=== PATIENT | male | born 1950 | race Caucasian/White ===

== ENCOUNTER 2018-09-15 11:41 | Emergency (ER) | payer MEDICARE, MEDICAID ==
[2018-09-15] MEDS ORDERED: DIAZEPAM 5 MG TABLET PO ONE (12:37)
[2018-09-15] MEDS ORDERED: KETOROLAC TROMETHAMINE INJ/PF 30 MG/1 ML SDV IM ONE (12:37)
--- NOTE | 2018-09-15 12:38 | ER Document Report ---
ED Medical Screen (RME) - General Chief Complaint: Low Back Pain Stated Complaint: LOW BACK PAIN Time Seen by Provider: 09/15/18 12:30 Mode of Arrival: Ambulatory Information source: Patient TRAVEL OUTSIDE OF THE [place] IN LAST 30 DAYS: No - HPI Patient complains to provider of: LOW BACK PAIN Notes: 09/15/18 12:37 Patient has a history of low back pain. He takes ibuprofen which he took early this morning as well as hydrocodone which she takes 4 times a day. He is having increasing pain in the lower back. No recent fall or injury. No bowel or bladder dysfunction. No fever. No drug use. Exam Nontoxic, no distress. Walks using a cane. Lumbar tenderness to palpation. No focal neuro deficits. Plan Screening lumbar x-ray, shot of Toradol and a dose of Valium. An initial examination was made on the patient as part of the triage process, and it was determined a more comprehensive evaluation was necessary. Initial l abs were ordered and patient was transferred to another provider in the ED who assumed care and finished evaluation and plan. - Related Data Allergies/Adverse Reactions: mri dye Allergy (Uncoded 09/15/18 11:42) Physical Exam - Vital signs Vitals: Temp Pulse Resp BP Pulse Ox 97.6 F 80 20 138/60 H 95 09/15/18 11:53 09/15/18 11:53 09/15/18 11:53 09/15/18 11:53 09/15/18 11:53 Course - Vital Signs Vital signs: Temp Pulse Resp BP Pulse Ox 97.6 F 80 20 138/60 H 95 09/15/18 11:53 09/15/18 11:53 09/15/18 11:53 09/15/18 11:53 09/15/18 11:53
--- NOTE | 2018-09-15 13:25 | RADIOLOGY REPORT (SQ) ---
EXAM DESCRIPTION: L SPINE WHOLE COMPLETED DATE/TIME: 09/15/2018 1:12 pm REASON FOR STUDY: PAIN COMPARISON: None. NUMBER OF VIEWS: Five views including obliques. TECHNIQUE: AP, lateral, oblique, and sacral radiographic images acquired of the lumbar spine. LIMITATIONS: None. FINDINGS: MINERALIZATION: Normal. SEGMENTATION: Normal. No transitional anatomy. ALIGNMENT: Normal. VERTEBRAE: Maintained height. No fracture or worrisome bone lesion. DISCS: Multilevel disc space narrowing with osteophytes. POSTERIOR ELEMENTS: Pedicles and facets are intact. No pars defect or posterior arch defects. Facet arthropathy is present. HARDWARE: None in the spine. PARASPINAL SOFT TISSUES: Normal. PELVIS: Intact as visualized. No fractures or worrisome bone lesions. SI joints intact. OTHER: Incidental note is made of gallstones. IMPRESSION: SPONDYLOSIS WITHOUT BONE LESION OR FRACTURE. TECHNICAL DOCUMENTATION: JOB ID: [id number] [email or web address] All Rights Reserved Reading location - IP/workstation name: [email or web address]
--- NOTE | 2018-09-15 15:21 | ER Document Report ---
Addendum entered and electronically signed by ALISE THOMPSON PA-C 09/15/18 15:26: Discharge - Discharge Clinical Impression: Spasm of muscle of lower back Condition: Stable Disposition: HOME, SELF-CARE Instructions: Ice Packs ([facility]), Low Back Pain ([facility]), Muscle Strain ([facility]), Warm Packs ([facility]) Additional Instructions: Be placed patient on a couple days worth of Valium for muscle spasms. I have informed him that he needs to inform his pain management people that we have written for him this out of the emergency room. Patient will continue taking his hydrocodone and ibuprofen as he has been directed in the past. He will use ice packs alternating with moist heat. Light stretching as he and I discussed. He is not to go to the gym to start working out until cleared by his physicians. Prescriptions: Diazepam [Valium 5 mg Tablet] 5 mg PO TID PRN #12 tablet PRN Reason: Original Note: ED General Pain - General Chief Complaint: Low Back Pain Stated Complaint: LOW BACK PAIN Time Seen by Provider: 09/15/18 12:30 Mode of Arrival: Ambulatory Information source: Patient Notes: Patient is a 68-year-old male comes emergency room complaining of chronic back pain with an acute exacerbation. Patient states that he went to [place] approximately a week and a half ago drove up there and back and came back about a week and half ago and is when he started noticed some little discomfort in his low back. He states it was a pain like he does not usually get it went across his entire back and then it settled in his left side on the left hip area it do es not radiate anywhere down the legs he has not lost any urine or stool. The right side pain disappeared completely. He does state that he has had to change the way he wipes himself after a bowel movement he leans forward off of the toilet since he had his back surgery 1984 and lately he has been having to lean more forward and wiped and he is putting stress on the left side while he holds his right side up. He is also been having a difficult time getting out of bed because of the discomfort. He took his hydrocodone this morning which seemed to relieve some of the discomfort and pain but he also took 800 mg ibuprofen without any relief. Patient has a long history of irritable bowel syndrome as well as a history of prosthetic cancer. He is also a type II diabetic. Also has a history of hypertension. Patient denies any new difficulties in walking he does always walk with a cane. He has not noted any type of foot drop. And is not having sensation loss in his lower extremities. TRAVEL OUTSIDE OF THE [place] IN LAST 30 DAYS: No - HPI Onset: Last week Onset/Duration: Gradual, Persistent Quality of pain: Cramping, Throbbing Severity: Moderate Pain Level: 3 Context: Chronic problem, Recent physical stress Typical of prior episodes of painful crisis: Yes Associated symptoms: Muscle aches Exacerbated by: Sitting, Standing, Movement, Walking Relieved by: Supine Similar symptoms previously: Yes Recently seen / treated by doctor: No - Related Data Allergies/Adverse Reactions: mri dye Allergy (Uncoded 09/15/18 11:42) Past Medical History - General Information source: Patient - Social History Smoking Status: Former Smoker Cigarette use (# per day): No Chew tobacco use (# tins/day): No Smoking Education Provided: No Frequency of alcohol use: Occasional Drug Abuse: None Lives with: Family, Spouse/Significant other Family History: Reviewed & Not Pertinent Patient has suicidal ideation: No Patient has homicidal ideation: No - Past Medical History Cardiac Medical History: Reports: Hx Heart Attack, Hx Hypercholesterolemia, Hx Hypertension Renal/ Medical History: Denies: Hx Peritoneal Dialysis Past Surgical History: Reports: Hx Cardiac Catheterization, Hx Cardiac Surgery - stents x 2, Hx Orthopedic Surgery Review of Systems - Review of Systems Constitutional: No symptoms reported EENT: No symptoms reported Cardiovascular: No symptoms reported Respiratory: No symptoms reported Gastrointestinal: No symptoms reported Genitourinary: No symptoms reported Male Genitourinary: No symptoms reported Musculoskeletal: See HPI Skin: No symptoms reported Hematologic/Lymphatic: No symptoms reported Neurological/Psychological: No symptoms reported -: Yes All other systems reviewed and negative Physical Exam - Vital signs Vitals: Temp Pulse Resp BP Pulse Ox 97.6 F 80 20 138/60 H 95 09/15/18 11:53 09/15/18 11:53 09/15/18 11:53 09/15/18 11:53 09/15/18 11:53 Interpretation: Normal - Notes Notes: PHYSICAL EXAMINATION: GENERAL: Patient is a well-nourished well-developed obese 68-year-old male who is in no apparent distress on physical exam. He does appear to be a little uncomfortable but he is ambulating without any difficulties. He does use a cane for balance.. HEAD: Atraumatic, normocephalic. EYES: Pupils equal round and reactive to light, extraocular movements intact, sclera anicteric, conjunctiva are normal. ENT: Nares patent, oropharynx clear without exudates. Moist mucous membranes. NECK: Normal range of motion, supple without lymphadenopathy LUNGS: Breath sounds clear to auscultation bilaterally and equal. No wheezes rales or rhonchi. HEART: Regular rate and rhythm without murmurs ABDOMEN: Soft, nontender, nondistended abdomen. No guarding, no rebound. No masses appreciated. Musculoskeletal: Examination patient's area of concern is his low back area. He states that there is around L5 that he had his original injury. He denies any loss of urine or stool and he has some mild tenderness to palpation but it is not on the generalized spine area. It is more off into the latissimus dorsi area on the left side. Patient displays some increased tenderness to palpation in the area of the muscle. There does appear to be a spasm in the area. Patient has full rotation as well as flexion and extension both a little difficulty secondary to discomfort. Examination of the lower extremities shows he has no deficits. He has no saddle paresthesia noted. He has good DTRs in the lower extremities. He has good strength against flexion and extension of the ankles and feet against resistance. His vascular exam is also normal. Patient walks with no foot drop. NEUROLOGICAL: Normal speech, normal gait. Normal sensory, motor exams PSYCH: Normal mood, normal affect. SKIN: Warm, Dry, normal turgor, no rashes or lesions noted. Course - Re-evaluation Re-evalutation: 09/15/18 15:21 Patient's x-rays were negative for any acute findings. Given there was no history of any type of injury with the exception of his long ride back from [facility]. He displays no signs of deep vein thrombosis he has no shortness of breath and no tachycardia. He has no chest pain as well. This does appear to be a straightforward muscle spasm of the low back. He does have a pain management doctor Dona Whittington. He will follow-up with her sometime this week and possibly be instructed to go to physical therapy. He understands he can return to ER if he has any other signs or symptoms of problems. - Vital Signs Vital signs: Temp Pulse Resp BP Pulse Ox 97.6 F 80 20 138/60 H 95 09/15/18 11:53 09/15/18 11:53 09/15/18 11:53 09/15/18 11:53 09/15/18 11:53 Discharge - Discharge Clinical Impression: Spasm of muscle of lower back Condition: Stable Disposition: HOME, SELF-CARE Instructions: Ice Packs ([facility]), Low Back Pain ([facility]), Muscle Strain ([facility]), Warm Packs ([facility]) Additional Instructions: Be placed patient on a couple days worth of Valium for muscle spasms. I have informed him that he needs to inform his pain management people that we have written for him this out of the emergency room. Patient will continue taking his hydrocodone and ibuprofen as he has been directed in the past. He will use ice packs alternating with moist heat. Light stretching as he and I discussed. He is not to go to the gym to start working out until cleared by his physicians. Prescriptions: Diazepam [Valium 5 mg Tablet] 5 mg PO TID PRN #12 tablet PRN Reason:
[2018-09-15 15:50] VITALS: BP 119/70
== END 2018-09-15 15:50 | disposition home or self-care (01) ==
LOC: ER 11:41
DX: M62.830 Muscle spasm of back (principal); M54.5 Low back pain; G89.29 Other chronic pain; E11.9 Type 2 diabetes mellitus without complications; I10 Essential (primary) hypertension; Z85.46 Personal history of malignant neoplasm of prostate; Z87.891 Personal history of nicotine dependence
CPT/HCPCS: 99283; 96372; 72110; A9270; J1885

== ENCOUNTER 2018-10-14 09:46 | Day surgery (SDC) | payer MEDICARE, MEDICAID ==
[~2018-10-14 09:46] MED LIST: DORZOLAMIDE HCL 2%/TIMOLOL MALEAT 0.5% OPH SOLN 10 ML OS PRN; KETOROLAC TROMETHAMINE 0.45% 4 DROP/0.4 ML DROPERETTE OS PRN
[2018-10-14] MEDS: TETRACAINE HCL 0.5% OPH SOLN 4 ML OS PRN ×4 (10:04→11:39)
[2018-10-14] MEDS: CYCLOPENTOLATE 0.2%/PHENYLEPHRINE 1% OPH SOLN 2 ML OS PRN ×3 (11:04→11:29)
[2018-10-14] MEDS: TROPICAMIDE 1% OPH SOLN 3 ML OS PRN ×3 (11:04→11:29)
[2018-10-14] MEDS: BESIFLOXACIN HCL 0.6% OPH SUSP 5 ML BOTTLE OS PRN ×4 (11:04→12:03)
[2018-10-14] MEDS ORDERED: MIDAZOLAM 2 MG/2 ML INJ ONE (11:07)
[2018-10-14] MEDS: CHONDR SU A NA/HYALUR INTRAOC KIT (SURGICARE) ONE ×2 (11:53)
[2018-10-14] MEDS: LIDOCAINE 1%/PHENYLEPHRINE 1.5% 1 ML VIAL ONE ×2 (11:53)
[2018-10-14] MEDS: EPINEPHRINE INJ/PF 1 MG/1 ML AMPULE ONE ×2 (11:53)
--- NOTE | 2018-10-14 17:44 | [facility] OPERATIVE REPORT E ---
[facility] Operative Report NAME: HELIO RODRIGUEZ AGE: 68Y DATE OF SURGERY: 10/14/2018 ROOM: PREOPERATIVE DIAGNOSIS: CATARACT LEFT EYE. POSTOPERATIVE DIAGNOSIS: CATARACT LEFT EYE. OPERATION: Cataract extraction with intraocular lens implant of the left eye with a toric multifocal lens. SURGEON: JUAN MCGRATH M.D. ANESTHESIA: MAC COMPLICATIONS: None. ESTIMATED BLOOD LOSS: None. PROCEDURE: After appropriate consent was obtained and calculations made, the patient was brought back to the operating room where the patient was prepped and draped in sterile fashion. A lid speculum was placed and attention was directed to a paracentesis where a paracentesis blade made a small incision. Viscoelastic was then used to inflate the anterior chamber. Next a 2.4 mm incision was made with the paracentesis blade. A continuous capsulorhexis forceps of approximately 5 mm was done using a cystitome and capsulorhexis forceps. Hydrodissection was carried out to make the lens freely mobile and then a divide and conquer technique was used to remove the lens with a CDE of approximately 11.53. Following this, the remaining cortical material was removed with irrigation/aspiration. After this the patient was then again marked. The marking procedure started in the preoperative holding area where 180 and 0 was marked with a marker. Now that the patient was in the operating room a 360-degree marker was used to marco the axis at approximately 110 degrees and a toric lens of 20.5 diopters [id number] was injected into the bag after filling with viscoelastic and rotating to 3 degrees. The I/A was used to remove the viscoelastic material and the toric lens appeared to be appropriately aligned. Cosopt and Besivance were instilled in the eye. Incision was watertight. The patient returned to postoperative recovery in stable condition. DICTATING PHYSICIAN: JUAN MCGRATH M.D. [id number] PHY#: [id number] ID: [id number] JOB#: [id number] ACCT: [id number] cc:JUAN MCGRATH M.D. > MTDD
--- NOTE | 2018-10-14 17:50 | [facility] DISCHARGE SUMMARY E ---
[facility] Discharge Summary NAME: HELIO RODRIGUEZ AGE: 68Y ADMITTED: 10/14/2018 DISCHARGED: The patient is a 68-year-old male who underwent cataract extraction with toric IOL of the left eye. DIAGNOSIS: Cataract left eye. He underwent surgery because he was having difficulty driving at night secondary to glare from headlights. He should be on a regular diet. No bending at the waist and no heavy lifting. He should use his Vigamox, ketorolac, and Pred Forte at 3:00 p.m. and 8:00 p.m. and sleep with a rigid shield. I will see him for his 1-day postop tomorrow. DICTATING PHYSICIAN: JUAN MCGRATH M.D. [id number] PHY#: [id number] ID: [id number] JOB#: [id number] ACCT: [id number] cc:JUAN MCGRATH M.D. >
== END 2018-10-14 12:44 | disposition home or self-care (01) ==
LOC: SC 09:46
PROVIDERS: ATTEND Internal Medicine
PROC: 08RK3JZ Replacement of Left Lens with Synthetic Substitute, Percutaneous Approach (ICD-10-PCS; principal; 2018-10-14 11:15)
DX: H25.12 Age-related nuclear cataract, left eye (principal); E11.9 Type 2 diabetes mellitus without complications; I10 Essential (primary) hypertension; E78.00 Pure hypercholesterolemia, unspecified; J45.909 Unspecified asthma, uncomplicated; M19.90 Unspecified osteoarthritis, unspecified site; Z85.46 Personal history of malignant neoplasm of prostate; K58.9 Irritable bowel syndrome, unspecified; Z87.891 Personal history of nicotine dependence
CPT/HCPCS: 82962; 00142; 66983; V2787; J2250; J3490 ×2; A9270; J0171; J2370; 142

== ENCOUNTER 2018-11-11 09:35 | Day surgery (SDC) | payer MEDICARE, MEDICAID ==
[~2018-11-11 09:35] MED LIST changes: +CHONDR SU A NA/HYALUR INTRAOC KIT (SURGICARE) ONE; +CYCLOPENTOLATE 0.2%/PHENYLEPHRINE 1% OPH SOLN 2 ML OD PRN; +DORZOLAMIDE HCL 2%/TIMOLOL MALEAT 0.5% OPH SOLN 10 ML OD PRN; -DORZOLAMIDE HCL 2%/TIMOLOL MALEAT 0.5% OPH SOLN 10 ML OS PRN; +EPINEPHRINE INJ/PF 1 MG/1 ML AMPULE ONE; +KETOROLAC TROMETHAMINE 0.45% 4 DROP/0.4 ML DROPERETTE OD PRN; -KETOROLAC TROMETHAMINE 0.45% 4 DROP/0.4 ML DROPERETTE OS PRN; +LIDOCAINE 1%/PHENYLEPHRINE 1.5% 1 ML VIAL ONE; +MIDAZOLAM 2 MG/2 ML INJ ONE; +TETRACAINE HCL 0.5% OPH SOLN 0.6 ML DROPERETTE OD PRN; +TETRACAINE HCL 0.5% OPH SOLN 4 ML OD PRN; +TROPICAMIDE 1% OPH SOLN 3 ML OD PRN
[2018-11-11] MEDS: TETRACAINE HCL 0.5% OPH SOLN 4 ML OD PRN ×3 (10:18→10:57)
[2018-11-11] MEDS: BESIFLOXACIN HCL 0.6% OPH SUSP 5 ML BOTTLE OD PRN ×4 (10:18→11:17)
[2018-11-11] MEDS: TROPICAMIDE 1% OPH SOLN 3 ML OD PRN ×3 (10:18→10:40)
[2018-11-11] MEDS: CYCLOPENTOLATE 0.2%/PHENYLEPHRINE 1% OPH SOLN 2 ML OD PRN ×3 (10:18→10:40)
[2018-11-11] MEDS: DORZOLAMIDE HCL 2%/TIMOLOL MALEAT 0.5% OPH SOLN 10 ML OD PRN ×2 (11:17)
--- NOTE | 2018-11-11 19:30 | [facility] OPERATIVE REPORT E ---
[facility] Operative Report NAME: HELIO RODRIGUEZ AGE: 68Y DATE OF SURGERY: 11/11/2018 ROOM: PREOPERATIVE DIAGNOSIS: CATARACT, RIGHT EYE. POSTOPERATIVE DIAGNOSIS: CATARACT, RIGHT EYE. OPERATION: Cataract extraction with insertion of an IOL of the right eye. SURGEON: JUAN MCGRATH M.D. ANESTHESIA: Topical. PROCEDURE: After obtaining appropriate consent, the patient's right eye was prepped and draped in sterile fashion as well as the surgeon in a sterile manner and cataract surgery was started. First a paracentesis blade was used to make a side-port incision. Viscoelastic was used to inflate the anterior chamber. Next a 2.4 mm incision was made with a 2.4 mm blade, clear corneal temporally. A continuous capsulorrhexis was made using a cystotome and Utrata forceps. Following this hydrodissection was carried out to make the lens fully loose and mobile and it was rotated 90 degrees. Following this, a ntbgcn-bzl-ueppzzi technique was used to phacoemulsify the lens with a CDE of 12.09. The remaining cortex was removed with irrigation/aspiration. Provisc was instilled into the capsular bag to inflate the bag. A SN60WF, 23.0 diopter lens was placed. The remaining viscoelastic material was removed with irrigation/aspiration. Following this, the incision was found to be watertight. Besivance was instilled into the eye and a protective shield was placed over the eye. The patient returned to the postoperative recovery in stable condition. DICTATING PHYSICIAN: JUAN MCGRATH M.D. [id number] PHY#: [id number] ID: [id number] JOB#: [id number] ACCT: [id number] cc:JUAN MCGRATH M.D. >
--- NOTE | 2018-11-11 19:30 | [facility] DISCHARGE SUMMARY E ---
[facility] Discharge Summary NAME: HELIO RODRIGUEZ AGE: 68Y ADMITTED: 11/11/2018 DISCHARGED: 11/11/2018 HOSPITAL COURSE: This is a 68-year-old male who underwent cataract extraction of the right eye. DIAGNOSIS: CATARACT, RIGHT EYE. He underwent surgery because he was having difficulty with blurred vision, distance, and increased glare from headlights. DISCHARGE INSTRUCTIONS: He should be on a regular diet. No bending at his waist, no heavy lifting. He should use his Moxifloxacin, Ketorolac, and Predforte at 3 p.m. and 8 p.m. and sleep with a rigid shield. I will see him for his 1 day postoperative tomorrow. DICTATING PHYSICIAN: JUAN MCGRATH M.D. [id number] PHY#: [id number] ID: [id number] JOB#: [id number] ACCT: [id number] cc:JUAN MCGRATH M.D. >
== END 2018-11-11 12:01 | disposition home or self-care (01) ==
LOC: SC 09:35
PROVIDERS: ATTEND Internal Medicine
DX: H25.11 Age-related nuclear cataract, right eye (principal); Z96.1 Presence of intraocular lens; E11.9 Type 2 diabetes mellitus without complications; I10 Essential (primary) hypertension; I25.2 Old myocardial infarction; E78.00 Pure hypercholesterolemia, unspecified; J44.9 Chronic obstructive pulmonary disease, unspecified; E07.9 Disorder of thyroid, unspecified; I49.9 Cardiac arrhythmia, unspecified; G47.33 Obstructive sleep apnea (adult) (pediatric); Z91.041 Radiographic dye allergy status; Z87.891 Personal history of nicotine dependence; Z85.46 Personal history of malignant neoplasm of prostate
CPT/HCPCS: 66984; 82962; 00142; V2632; J2250; J3490 ×2; A9270; J0171; J2370; 142

== ENCOUNTER 2019-02-13 01:10 | Inpatient (IN) | payer MEDICARE, MEDICAID ==
[2019-02-13] MEDS: NORMAL SALINE 1000 ML 1,000 ML IV PRN ×4 (01:10→23:13)
[2019-02-13] MEDS ORDERED: CEFTRIAXONE 2 GM/D5W RTU 2 GM/50 ML RTUPB IV ONE (01:27)
[2019-02-13] MEDS ORDERED: AZITHROMYCIN INJ 500 MG VIAL IV ONE (01:28)
[2019-02-13] MEDS ORDERED: METHYLPREDNISOLONE INJ 125 MG/2 ML SDV IV ONE (01:28)
[2019-02-13] MEDS ORDERED: IPRATROPIUM BROMIDE 0.02% NEB 0.5 MG/2.5 ML AMPUL NEB ONE (01:28)
[2019-02-13] MEDS ORDERED: ALBUTEROL SULFATE 0.083% NEB 2.5 MG/3 ML AMPUL NEB ONE (01:28)
--- NOTE | 2019-02-13 02:04 | RADIOLOGY REPORT (SQ) ---
Chest single view on 02/13/2019 at 1:41 AM CLINICAL INDICATION: Cough COMPARISON: None FINDINGS: There is slight elevation of the right hemidiaphragm. There is mild patchy right infrahilar opacity suggestive of early pneumonia. Lungs are otherwise clear. Cardiac, hilar and mediastinal contours are within normal limits. Pulmonary vascularity is within normal limits. Degenerative changes are noted in the spine. IMPRESSION: Probable early right infrahilar pneumonia.
--- NOTE | 2019-02-13 02:13 | ER Document Report ---
ED Respiratory Problem - General Stated Complaint: FEVER Primary Care Provider: TAMMY CHRISTIAN MD [Primary Care Provider] - Follow up as needed Information source: Patient TRAVEL OUTSIDE OF THE [place] IN LAST 30 DAYS: No - HPI Patient complains to provider of: COPD, Short of breath. No: Asthma, Chest pain, CHF, Cough, Hurts to breath, Other Onset: This morning Duration: Continuous Initiating Event: No: Allergy, Aspiration/Choking, Exertion, Exposure to chemicals, Exposure to dust, Exposure to fumes, Exposure to mold, Exposure to smoke, Out of meds, Sports/exercise, URI, Other Quality of pain: denies: No pain, Achy, Burning, Cramping, Dull, Fullness, Pressure, Sharp, Stabbing, Throbbing, Other Context: Hx COPD. denies: DVT, Factor V Leiden, Hx asthma, Hx CHF, Malignancy, , Recent cardiac event, Recent foreign travel, Recent long distance trvl, Recent immobilization, Recent surgery, Smoker, Other Chest pain/discomfort: denies: Center, Constant, Heaviness, Intermittent, Left, Pain, Radiates to arm, Radiates to back, Radiates to jaw, Right, Tightness, Worse with deep breaths Cough: Productive Sputum amount: Moderate Sputum color: Yellow Sputum consistency: Thick EMS treatments: No: Bronchodilators, CPAP, Diuretics, Epinephrine, Nitrates, Oxygen, Solumedrol Associated symptoms: Cough. denies: None, Ankle/leg swelling, Allergy/hay fever, Anxiety, Bloody cough, Chest pain/discomfort, Chills, Congestion, Dental decay, Difficulty breathing, Earache, Extertional dyspnea, Facial pain, Fever, Headache, Heart racing, Hoarseness, Hurts to breathe, Hyperventilation, Jaw pain, Leg/calf/joint pain, Muscle spasms, Orthopnea, PND, Runny nose, Sinus pain/pressure, Short of breath, Sore Throat, Sweaty, Tingling face, Tingling hands, Unable to swallow, Toothache, Wheezing, Other - Related Data Allergies/Adverse Reactions: mri dye Allergy (Uncoded 09/15/18 11:42) Past Medical History - Social History Smoking Status: Former Smoker Family History: Reviewed & Not Pertinent - Past Medical History Cardiac Medical History: Reports: Hx Heart Attack, Hx Hypercholesterolemia, Hx Hypertension Pulmonary Medical History: Reports: Hx Asthma Neurological Medical History: Denies: Hx Cerebrovascular Accident, Hx Seizures Renal/ Medical History: Denies: Hx Peritoneal Dialysis GI Medical History: Denies: Hx Hepatitis, Hx Hiatal Hernia, Hx Ulcer Infectious Medical History: Denies: Hx Hepatitis Past Surgical History: Reports: Hx Cardiac Catheterization, Hx Cardiac Surgery - stents x 2, Hx Open Heart Surgery - 2003 STENTS, Hx Orthopedic Surgery. Denies: Hx Pacemaker Review of Systems - Review of Systems Constitutional: Chills, Fever. denies: No symptoms reported, See HPI, Diaphoresis, Malaise, Weakness, Other, Weight gain, Weight loss, Recent illness EENT: denies: No symptoms reported, See HPI, Eye pain, Eye discharge, Blurred vision, Tearing, Double vision, Ear pain, Ear discharge, Nose pain, Nose congestion, Nose discharge, Sinus pressure, Sinus discharge, Throat pain, Difficulty swallowing, Throat swelling, Mouth pain, Mouth swelling, Dental problem, Vertigo, Other Cardiovascular: Chest pain. denies: No symptoms reported, See HPI, Palpitations, Heart racing, Orthopnea, Dyspnea, Syncope, Dizziness, Lightheaded, Edema, Other, Paroxysmal Nocturnal Dysp Respiratory: Cough, Short of breath, Sputum, Wheezing. denies: No symptoms reported, See HPI, Hurts to breathe, Hemoptysis, Stridor, Other Gastrointestinal: denies: No symptoms reported, See HPI, Abdomen distended, Abdominal pain, Diarrhea, Nausea, Vomiting, Constipation, Blood streaked bowels, Poor appetite, Poor fluid intake, Blood in vomit, Black stools, Rectal bleeding, Last bowel movement, Fecal incontinence, Other Musculoskeletal: denies: No symptoms reported, See HPI, Back pain, Gout, Joint pain, Joint swelling, Muscle pain, Muscle stiffness, Neck pain, Deformity, Leg swelling, Ankle swelling, Other -: Yes All other systems reviewed and negative Physical Exam - Vital signs Vitals: Temp Resp 103.3 F H 29 H 02/13/19 01:15 02/13/19 01:15 Notes: PHYSICAL EXAMINATION: GENERAL: Well-appearing, well-nourished and in no acute distress. HEAD: Atraumatic, normocephalic. EYES: Pupils equal round and reactive to light, extraocular movements intact, sclera anicteric, conjunctiva are normal. ENT: nares patent, oropharynx clear without exudates. Moist mucous membranes. NECK: Normal range of motion, supple without lymphadenopathy LUNGS: Rhonchi heard in the right base and midlung mild wheezes heard bilaterally no rales heard bilaterally HEART: Regular rate and rhythm without murmurs ABDOMEN: Soft, nontender, normoactive bowel sounds. No guarding, no rebound. No masses appreciated. EXTREMITIES: Normal range of motion, no pitting or edema. No cyanosis. NEUROLOGICAL: No focal neurological deficits. Moves all extremities sponta neously and on command. PSYCH: Normal mood, normal affect. SKIN: Warm, Dry, normal turgor, no rashes or lesions noted. Course - Vital Signs Vital signs: Temp Pulse Resp BP Pulse Ox 99.9 F 17 101/53 L 97 02/13/19 02:30 02/13/19 03:31 02/13/19 03:31 02/13/19 03:31 - Laboratory Result Diagrams: 02/13/19 01:50 02/13/19 01:50 Laboratory results interpreted by me: 02/13/19 02/13/19 02/13/19 01:20 01:50 01:50 WBC 11.3 H Hgb 12.9 L RDW 14.9 H Seg Neuts % (Manual) 82 H Lymphocytes % (Manual) 6 L Abs Neuts (Manual) 9.7 H PT 15.6 H Sodium BUN Creatinine Est GFR (MDRD) Non-Af Glucose Lactic Acid 2.9 H Calcium AST Total Protein Albumin 02/13/19 01:50 WBC Hgb RDW Seg Neuts % (Manual) Lymphocytes % (Manual) Abs Neuts (Manual) PT Sodium 135.4 L BUN 21 H Creatinine 1.36 H Est GFR (MDRD) Non-Af 52 L Glucose 235 H Lactic Acid Calcium 7.9 L AST 100 H Total Protein 5.8 L Albumin 3.1 L - Diagnostic Test Radiology reviewed: Image reviewed, Reports reviewed - EKG Interpretation by Me EKG shows normal: Sinus rhythm Rate: Tachycardia Brandon/QRS: RBBB When compared to previous EKG there are: Previous EKG unavailable - Transfer of Care Notes: 02/13/19 04:18 Note patient after IV fluids of 3 L and IV antibiotics is now normotensive although only 104 SYSTOLIC patient is septic he will be admitted under Discharge - Discharge Clinical Impression: Pneumonia Qualifiers: Pneumonia type: due to unspecified organism Laterality: right Lung location: middle lobe of lung Qualified Code(s): J18.1 - Lobar pneumonia, unspecified organism Condition: Fair Disposition: ADMITTED INPATIENT Admitting Provider: Jason (Hospitalist) Unit Admitted: Medical Floor Referrals: TAMMY CHRISTIAN MD [Primary Care Provider] - Follow up as needed
[2019-02-13 02:27] LABS: HEMATOCRIT 37.9 % (37.9-51.0); HEMOGLOBIN 12.9 g/dL (13.5-17.0); MEAN CORPUSCULAR HEMOGLOBIN 28.8 pg (27.0-33.4); MEAN CORPUSCULAR HGB CONC 33.9 g/dL (32.0-36.0); MEAN CORPUSCULAR VOLUME 85 fl (80-97); PLATELET COUNT 181 10^3/uL (150-450); RED BLOOD COUNT 4.46 10^6/uL (4.35-5.55); RED CELL DISTRIBUTION WIDTH 14.9 % (11.5-14.0); WHITE BLOOD COUNT 11.3 10^3/uL (4.0-10.5)
[2019-02-13 02:42] LABS: INTERNATIONAL RATION (INR) 1.23; PROTHROMBIN TIME 15.6 SEC (11.4-15.4)
[2019-02-13 02:51] LABS: ABSOLUTE LYMPHOCYTES# (MANUAL) 0.7 10^3/uL (0.5-4.7); ABSOLUTE MONOCYTES # (MANUAL) 0.9 10^3/uL (0.1-1.4); BAND NEUTROPHILS % (MANUAL) 4 % (3-5); BASOPHILS % (MANUAL) 0 % (0-2); EOSINOPHILS % (MANUAL) 0 % (0-6); LYMPHOCYTES % (MANUAL) 6 % (13-45); MONOCYTES % (MANUAL) 8 % (3-13); SEGMENTED NEUTROPHILS % (MAN) 82 % (42-78); TOTAL CELLS COUNTED 100
[2019-02-13 02:52] LABS: ANISOCYTOSIS SLIGHT
[2019-02-13 02:53] LABS: PLATELET COMMENT ADEQUATE
[2019-02-13 03:10] LABS: ALBUMIN 3.1 g/dL (3.5-5.0); ALKALINE PHOSPHATASE 70 U/L (38-126); ANION GAP 12 (5-19); ASPARTATE AMINO TRANSFERASE 100 U/L (17-59); BILIRUBIN,DIRECT 0.4 mg/dL (0.0-0.4); BILIRUBIN,TOTAL 0.8 mg/dL (0.2-1.3); BLOOD UREA NITROGEN 21 mg/dL (7-20); CALCIUM 7.9 mg/dL (8.4-10.2); CARBON DIOXIDE 22 mmol/L (22-30); CHLORIDE 101 mmol/L (98-107); GLUCOSE 235 mg/dL (75-110); POTASSIUM 4.2 mmol/L (3.6-5.0); TOTAL PROTEIN 5.8 g/dL (6.3-8.2)
[2019-02-13] MEDS ORDERED: NORMAL SALINE 1000 ML 1,000 ML IV ONE (03:49)
[2019-02-13] MEDS ORDERED: LEVALBUTEROL HCL NEB 0.63 MG/3 ML AMPUL NEB PRN (05:05)
[2019-02-13] MEDS ORDERED: ACETAMINOPHEN 325 MG TABLET PO PRN (05:05)
[2019-02-13] MEDS ORDERED: GUAIFENESIN SYRP 200 MG/10 ML UDC PO PRN (05:05)
[2019-02-13] MEDS ORDERED: RINGERS SOLUTION,LACTATED 1,000 ML IV PRN (05:05)
[2019-02-13] MEDS ORDERED: IBUPROFEN 800 MG TABLET PO PRN (05:16)
[2019-02-13] MEDS ORDERED: HYDRALAZINE HCL INJ/PF 20 MG/1 ML SDV IV PRN (05:16)
[2019-02-13] MEDS ORDERED: DEXTROSE 40% GEL 15 GM TUBE PO PRN ×4 (05:18→13:50)
[2019-02-13] MEDS ORDERED: DEXTROSE 50%-WATER 25 GM/50 ML DISP.SYRIN IV PRN ×4 (05:18→13:50)
[2019-02-13] MEDS ORDERED: GLUCAGON,HUMAN RECOMB 1 MG INJ IM PRN ×2 (05:18→13:50)
[2019-02-13] MEDS: PANTOPRAZOLE SODIUM 40 MG TABLET.DR PO SCH ×2 (05:47→16:08)
[2019-02-13] MEDS: HEPARIN SOD (PORCINE) 5,000 UNIT/ML 1 ML VIAL SUBCUT SCH ×3 (05:48→22:52)
[2019-02-13 06:25] LABS: CREATINE KINASE MB 2.52 ng/mL (<4.55); TROPONIN I 0.027 ng/mL
[2019-02-13 06:26] LABS: APPEARANCE,URINE CLEAR; BILIRUBIN,URINE NEGATIVE (NEGATIVE); COLOR,URINE YELLOW; GLUCOSE, URINE >=500 mg/dL (NEGATIVE); KETONES,URINE NEGATIVE (NEGATIVE); LEUKOCYTE ESTERASE,URINE NEGATIVE (NEGATIVE); NITRITE,URINE NEGATIVE (NEGATIVE); PROTEIN,URINE NEGATIVE (NEGATIVE); URINE SPECIFIC GRAVITY 1.009; UROBILINOGEN,URINE NEGATIVE mg/dL (<2.0)
--- NOTE | 2019-02-13 07:36 | PDOC H&P ---
History of Present Illness Admission Date/PCP: 02/13/2019 04:29 TAMMY CHRISTIAN MD Patient complains of: Fever History of Present Illness: HELIO SILVER is a 69 year old male who presented to the emergency room with an acute fever. He admits developing fever on the morning of 02/12/2019 which persisted throughout the day and was present when he was seen initially in the emergency room. He feels his fever was severe at 102 F and notes that it has been associated with dyspnea worsened by exertion and has been accompanied by a cough productive of thick yellow mucus. He denies other associated or accompanying symptoms. He denies prior similar episodes and has not identified any aggravating or ameliorating factors for his fever. In the emergency room he was found to have mild hypotension with a lactic acid of 2.9 and a minimally elevated white blood count at 11.3. He did have a right perihilar pneumonia on his chest x-ray and was subsequently started on antibiotic therapy for a community-acquired pneumonia and admitted for further evaluation and treatment. Past Medical History Cardiac Medical History: Reports: Coronary Artery Disease, Myocardial Infarction, Hyperlipidema, Hypertension Pulmonary Medical History: Reports: Asthma, Bronchitis, Chronic Obstructive Pulmonary Disease (COPD) EENT Medical History: Denies: Cataracts, Ears - Hearing Neurological Medical History: Denies: Hemorrhagic CVA, Ischemic CVA, Seizures Endocrine Medical History: Reports: Diabetes Mellitus Type 2, Obesity Denies: Diabetes Mellitus Type 1, Hyperthyroidism, Hypothyroidism Renal/ Medical History: Denies: Chronic Kidney Disease, Nephrolithiasis Malignancy Medical History: Reports: Other - Prostatic cancer treated with radiation implants GI Medical History: Denies: Cirrhosis, Crohn's Disease, Hepatitis, Hiatal Hernia, Ulcerative Colitis Musculoskeltal Medical History: Reports: Arthritis Denies: Gout Skin Medical History: Denies: Eczema, Psoriasis Psychiatric Medical History: Reports: Alcohol Dependency, Tobacco Dependency Denies: Substance Abuse Traumatic Medical History: Reports: None Hematology: Denies: Anemia, Bleeding Tendencies Infectious Medical History: Reports: None Past Surgical History Past Surgical History: Reports: Cardiac Catheterization, Coronary Artery Bypass Graft, Coronary Stent - X 2, Orthopedic Surgery Social History Information Source: Patient Lives with: Spouse/Significant other Smoking Status: Former Smoker Electronic Cigarette use?: No Frequency of Alcohol Use: Occasional Hx Recreational Drug Use: No Drugs: None Hx Prescription Drug Abuse: No - Advance Directive Resuscitation Status: Full Code Surrogate healthcare decision maker:: Roxanne Silver Family History Family History: CAD, DM, Hypertension, Malignancy Parental Family History Reviewed: Yes Children Family History Reviewed: No Sibling(s) Family History Reviewed.: Yes Medication/Allergy Home Medications: Diazepam [Valium 5 mg Tablet] 5 mg PO TID PRN #12 tablet 09/15/18 Albuterol Sulfate [Proair Respiclick] 90 mcg IH DAILY 10/07/18 Aspirin [Ecotrin 81 mg EC Tablet] 81 mg PO DAILY 10/07/18 Budesonide/Formoterol Fumarate [Symbicort Hfa 160-4.5 Mcg Inhaler 6 gm] 2 puff IH Q12 10/07/18 Cholecalciferol (Vitamin D3) [Vitamin D] 400 unit PO DAILY 10/07/18 Fenofibrate 50 mg PO DAILY 10/07/18 Glucosamine HCl/Chondro Patterson A [Glucosamine Chondroitin Cap] 1 cap PO DAILY 10/07/18 Hydrocodone Bit/Acetaminophen [Hydrocodon-Acetaminophn 10-325] 1 tab PO Q6 PRN 10/07/18 Ibuprofen [Motrin 800 mg Tablet] 800 mg PO Q8H PRN 10/07/18 Ketorolac Tromethamine 0.45% [Acuvail 0.45% Oph Soln 0.4 ml/Dropperette] 1 drop OP .3PM AND 8PM TODAY 10/07/18 Lisinopril 20 mg PO DAILY 10/07/18 Lisinopril 20 mg PO DAILY 10/07/18 Metformin HCl 1,000 mg PO BID 10/07/18 Metoprolol Succinate [Toprol Xl] 25 mg PO DAILY 10/07/18 Moxifloxacin HCl [Vigamox 0.5% Oph Soln 3 ml] 1 drop OP .3PM AND 8PM TODAY 10/07/18 Multivitamin/Iron/Folic Acid [Multivitamin with Iron Tablet] 1 each PO DAILY 10/07/18 Nitroglycerin [Nitrostat] 0.6 mg SL PRN PRN 10/07/18 Prednisolone Acetate [Pred Forte] 1 drop OP .3PM AND 8PM TODAY 10/07/18 Allergies/Adverse Reactions: mri dye Allergy (Uncoded 09/15/18 11:42) Review of Systems Constitutional: PRESENT: as per HPI, fever(s). ABSENT: chills Eyes: ABSENT: visual disturbances, other - Eye pain Ears: ABSENT: hearing changes, other - Ear pain Nose, Mouth, and Throat: ABSENT: headache(s), mouth pain, sore throat Cardiovascular: PRESENT: as per HPI, dyspnea on exertion. ABSENT: chest pain, edema, orthropnea, palpitations Respiratory: PRESENT: as per HPI, cough, dyspnea, sputum - Thick yellow sputum Gastrointestinal: ABSENT: abdominal pain, constipation, diarrhea, nausea, vomiting Genitourinary: ABSENT: dysuria, hematuria Musculoskeletal: ABSENT: back pain, joint swelling, muscle weakness Integumentary: ABSENT: pruritus, rash Neurological: ABSENT: confusion, convulsions, focal weakness, memory loss, syncope Psychiatric: ABSENT: anxiety, depression Endocrine: ABSENT: cold intolerance, heat intolerance Hematologic/Lymphatic: ABSENT: easy bleeding, easy bruising Allergic/Immunologic: ABSENT: seasonal rhinorrhea Physical Exam Vital Signs: Temp Pulse Resp BP Pulse Ox 99.9 F 17 101/53 L 97 02/13/19 02:30 02/13/19 03:31 02/13/19 03:31 02/13/19 03:31 Intake & Output 02/11/19 02/12/19 02/13/19 23:59 23:59 23:59 Intake Total 2049 Balance 2049 Weight 117.934 kg General appearance: PRESENT: no acute distress, cooperative, other - On supplemental oxygen via nasal cannula Head exam: PRESENT: atraumatic, normocephalic Eye exam: PRESENT: conjunctiva pink. ABSENT: conjunctival injection, scleral icterus Ear exam: PRESENT: normal external ear exam. ABSENT: bleeding, drainage Mouth exam: PRESENT: dry mucosa, neck supple Neck exam: ABSENT: thyromegaly, tracheal deviation Respiratory exam: PRESENT: prolonged expiratory phas - Expiratory wheezes presen t no field mildly prolonged expiratory phase in all puckett, rales - Coarse rales present right central lung puckett, symmetrical, tachypnea, wheezes Cardiovascular exam: PRESENT: RRR, tachycardia. ABSENT: clicks, gallop, rubs Pulses: PRESENT: normal radial pulses, normal dorsalis pedis pul Vascular exam: PRESENT: normal capillary refill. ABSENT: pallor GI/Abdominal exam: PRESENT: normal bowel sounds, soft. ABSENT: tenderness Rectal exam: PRESENT: deferred Extremities exam: ABSENT: joint swelling, pedal edema Musculoskeletal exam: ABSENT: deformity, dislocation Neurological exam: PRESENT: alert, oriented to person, oriented to place, oriented to time, oriented to situation, CN II-XII grossly intact. ABSENT: motor sensory deficit Psychiatric exam: PRESENT: appropriate affect, normal mood Skin exam: PRESENT: dry, intact, warm. ABSENT: jaundice, rash, urticaria Results Laboratory Results: 02/13/19 01:50 02/13/19 01:50 02/13/19 02/13/19 02/13/19 01:20 01:50 01:50 WBC 11.3 H RBC 4.46 Hgb 12.9 L Hct 37.9 MCV 85 MCH 28.8 MCHC 33.9 RDW 14.9 H Plt Count 181 Seg Neutrophils % Not Reportable Sodium 135.4 L Potassium 4.2 Chloride 101 Carbon Dioxide 22 Anion Gap 12 BUN 21 H Creatinine 1.36 H Est GFR ( Amer) > 60 Glucose 235 H Lactic Acid 2.9 H Calcium 7.9 L Total Bilirubin 0.8 AST 100 H Alkaline Phosphatase 70 Total Protein 5.8 L Albumin 3.1 L 02/13/19 01:50 Troponin I 0.035 Impressions: Chest X-Ray 02/13/19 01:27 IMPRESSION: Probable early right infrahilar pneumonia. Assessment and Plan - Diagnosis (1) Pneumonia involving right lung Qualifiers: Lung location: unspecified part of lung Is this a current diagnosis for this admission?: Yes Plan: Patient was started on routine antibiotic therapy for community-acquired pneumonia utilizing Rocephin and Zithromax. He will receive supportive and symptomatic cares for the pneumonia. Care will include an aggressive pulmonary toilet utilizing Xopenex, Pulmicort, Atrovent and Mucomyst delivered via nebulizer therapy. He will also receive supplemental oxygen as required to maintain adequate oxygen saturations. (2) Acute respiratory failure with hypoxia Is this a current diagnosis for this admission?: Yes Plan: Patient will receive supplemental oxygen as required to maintain adequate O2 saturation. More intensive therapy may be employed if required. Patient's oxygen saturation be monitored closely throughout his hospital course. (3) SIRS (systemic inflammatory response syndrome) Is this a current diagnosis for this admission?: Yes Plan: Serial lactic acids will be performed and the patient will be monitored closely for additional signs or symptoms of sepsis. (4) Diabetes mellitus type 2 in obese Is this a current diagnosis for this admission?: Yes Plan: Patient be continued on his usual diabetic therapy. Hemoglobin A1c will be obtained to evaluate the efficacy of current therapy. Patient will additionally be on a diabetic diet and before meals and at bedtime Accu-Cheks will be performed with sliding scale insulin for hyperglycemia and a hypoglycemic protocol in place. (5) HTN (hypertension) Qualifiers: Hypertension type: essential hypertension Qualified Code(s): I10 - Essential (primary) hypertension Is this a current diagnosis for this admission?: Yes Plan: Patient will eventually be continued on his usual medications for hypertension and his blood pressure will be monitored closely throughout his hospital course. (6) HLD (hyperlipidemia) Qualifiers: Hyperlipidemia type: unspecified Qualified Code(s): E78.5 - Hyperlipidemia, unspecified Is this a current diagnosis for this admission?: Yes Plan: Patient be continued on his usual medications for hyperlipidemia. A lipid profile will be obtained to assess the efficacy of his current therapy. (7) Chronic obstructive pulmonary disease with acute lower respiratory infection Is this a current diagnosis for this admission?: Yes Plan: Patient will be treated with IV antibiotics as indicated above and an aggressive pulmonary toilet also was treated above. - Time Time Spent with patient: 25-34 minutes Medications reviewed and adjusted accordingly: Yes Anticipated discharge: Home - Inpatient Certification Based on my medical assessment, after consideration of the patient's comorbidities, presenting symptoms, or acuity I expect that the services needed warrant INPATIENT care.: Yes I certify that my determination is in accordance with my understanding of Medicare's requirements for reasonable and necessary INPATIENT services [42 CFR 412.3e].: Yes Medical Necessity: Significant Comorbidiites Make Outpatient Treatment Too Risky, Need Close Monitoring Due to Risk of Patient Decompensation, Need For IV Fluids, Need for Nebulizer Therapy and Monitoring of Response, Need for IV Antibiotics, Risk of Complication if Not Cared For in Hospital
[2019-02-13] MEDS: LEVALBUTEROL HCL NEB 1.25 MG/3 ML AMPUL NEB SCH ×2 (08:22→16:11)
[2019-02-13] MEDS: IPRATROPIUM BROMIDE 0.02% NEB 0.5 MG/2.5 ML AMPUL NEB SCH ×2 (08:24→16:11)
[2019-02-13] MEDS: BUDESONIDE NEB 0.5 MG/2 ML AMPUL NEB SCH ×2 (08:24→20:13)
[2019-02-13] MEDS: DOCUSATE SODIUM 100 MG CAPSULE PO SCH ×2 (09:21→17:21)
[2019-02-13] MEDS: INSULIN REG, HUMAN 100 UNIT/ML 3 ML VIAL (PYX) SUBCUT PRN ×3 (09:42→17:23)
--- NOTE | 2019-02-13 10:24 | EKG REPORT ---
SEVERITY:- ABNORMAL ECG - SINUS RHYTHM RIGHT BUNDLE BRANCH BLOCK INFERIOR INFARCT, AGE INDETERMINATE : Confirmed by: Virgil Dumas 13-Feb-2019 10:23:32
[2019-02-13 12:50] LABS: CREATINE KINASE MB 4.39 ng/mL (<4.55)
[2019-02-13 12:57] LABS: TROPONIN I < 0.012 ng/mL
[2019-02-13] MEDS ORDERED: HYDROCODONE/ACETAMINOPHEN 10-325 MG TABLET PO PRN (13:38)
[2019-02-13] MEDS ORDERED: VANCOMYCIN HCL 0 MG in DEXTROSE 5%-WATER 250 ML IV NR (14:00)
[2019-02-13] MEDS: METHYLPREDNISOLONE INJ 40 MG/1 ML SDV IV SCH ×2 (14:02→22:52)
[2019-02-13] MEDS ORDERED: INSULIN GLARGINE,HUM.REC.ANLOG 1,000 UNIT/10 ML VIAL SUBCUT SCH (15:00)
[2019-02-13] MEDS: VANCOMYCIN HCL 1,250 MG in DEXTROSE 5%-WATER 250 ML IV SCH (16:05)
[2019-02-13] MEDS ORDERED: INSULIN GLARGINE,HUM.REC.ANLOG 1,000 UNIT/10 ML VIAL SUBCUT ONE (17:45)
[2019-02-13] MEDS: PIPERACILLIN SODIUM/TAZOBACTAM 3.375 GM in NORMAL SALINE 100 ML IV SCH ×2 (17:50→23:06)
[2019-02-13] MEDS ORDERED: INSULIN GLARGINE,HUM.REC.ANLOG 1,000 UNIT/10 ML VIAL (PYX) SUBCUT ONE ×2 (18:18→18:27)
[2019-02-13 18:23] LABS: CREATINE KINASE MB 5.78 ng/mL (<4.55)
[2019-02-13 18:24] LABS: TROPONIN I < 0.012 ng/mL
[2019-02-13] MEDS ORDERED: AZITHROMYCIN 500 MG in DEXTROSE 5%-WATER 250 ML IV SCH (22:00)
[2019-02-14] MEDS: IPRATROPIUM BROMIDE 0.02% NEB 0.5 MG/2.5 ML AMPUL NEB SCH ×3 (00:28→15:59)
[2019-02-14] MEDS: LEVALBUTEROL HCL NEB 1.25 MG/3 ML AMPUL NEB SCH ×3 (00:28→15:59)
[2019-02-14] MEDS ORDERED: AZITHROMYCIN 500 MG in DEXTROSE 5%-WATER 250 ML IV SCH (01:00)
[2019-02-14] MEDS ORDERED: CEFTRIAXONE 1 GM/D5W RTU 1 GM/50 ML RTUPB IV SCH (02:00)
[2019-02-14] MEDS: VANCOMYCIN HCL 1,250 MG in DEXTROSE 5%-WATER 250 ML IV SCH (05:58)
[2019-02-14] MEDS: PIPERACILLIN SODIUM/TAZOBACTAM 3.375 GM in NORMAL SALINE 100 ML IV SCH ×4 (05:59→23:06)
[2019-02-14] MEDS: PANTOPRAZOLE SODIUM 40 MG TABLET.DR PO SCH ×2 (05:59→17:51)
[2019-02-14] MEDS: HEPARIN SOD (PORCINE) 5,000 UNIT/ML 1 ML VIAL SUBCUT SCH ×3 (05:59→21:59)
[2019-02-14] MEDS: METHYLPREDNISOLONE INJ 40 MG/1 ML SDV IV SCH ×3 (05:59→21:59)
[2019-02-14 06:25] LABS: HEMATOCRIT 38.1 % (37.9-51.0); HEMOGLOBIN 12.8 g/dL (13.5-17.0); MEAN CORPUSCULAR HEMOGLOBIN 28.6 pg (27.0-33.4); MEAN CORPUSCULAR HGB CONC 33.5 g/dL (32.0-36.0); MEAN CORPUSCULAR VOLUME 85 fl (80-97); PLATELET COUNT 252 10^3/uL (150-450); RED BLOOD COUNT 4.47 10^6/uL (4.35-5.55); RED CELL DISTRIBUTION WIDTH 15.6 % (11.5-14.0); WHITE BLOOD COUNT 16.7 10^3/uL (4.0-10.5)
[2019-02-14 06:42] LABS: ANION GAP 13 (5-19); BLOOD UREA NITROGEN 26 mg/dL (7-20); CALCIUM 7.9 mg/dL (8.4-10.2); CARBON DIOXIDE 21 mmol/L (22-30); CHLORIDE 104 mmol/L (98-107); GLUCOSE 281 mg/dL (75-110); POTASSIUM 3.8 mmol/L (3.6-5.0)
[2019-02-14] MEDS ORDERED: GLUCAGON,HUMAN RECOMB 1 MG INJ IM PRN ×2 (07:43→08:12)
[2019-02-14] MEDS ORDERED: DEXTROSE 40% GEL 15 GM TUBE PO PRN ×4 (07:43→08:12)
[2019-02-14] MEDS ORDERED: DEXTROSE 50%-WATER 25 GM/50 ML DISP.SYRIN IV PRN ×4 (07:43→08:12)
[2019-02-14] MEDS ORDERED: INSULIN LISPRO 100 UNIT/ML 3 ML VIAL SUBCUT SCH (08:00)
[2019-02-14] MEDS ORDERED: INFLUENZA QUAD (6MOS+) 2019-20 VAC 0.5 ML SYR IM ONE (08:00)
[2019-02-14] MEDS ORDERED: INSULIN REG, HUMAN 100 UNIT/ML 3 ML VIAL (PYX) SUBCUT ONE (08:45)
[2019-02-14] MEDS: BUDESONIDE NEB 0.5 MG/2 ML AMPUL NEB SCH ×2 (08:52→20:48)
[2019-02-14] MEDS: INSULIN GLARGINE,HUM.REC.ANLOG 1,000 UNIT/10 ML VIAL SUBCUT SCH (09:48)
[2019-02-14] MEDS: ATORVASTATIN CALCIUM 20 MG TABLET PO SCH (09:49)
[2019-02-14] MEDS: DOCUSATE SODIUM 100 MG CAPSULE PO SCH ×2 (09:49→17:50)
[2019-02-14] MEDS: FLUTICASONE/VILANTEROL 200-25 MCG/DOSE IH SCH (09:49)
[2019-02-14] MEDS: METOPROLOL SUCCINATE 25 MG TAB.SR.24H PO SCH (09:49)
[2019-02-14] MEDS ORDERED: METOPROLOL SUCCINATE 25 MG TAB.SR.24H PO SCH (10:00)
[2019-02-14] MEDS: INSULIN REG, HUMAN 100 UNIT/ML 3 ML VIAL (PYX) SUBCUT SCH ×5 (12:21→22:00)
[2019-02-14] MEDS: NORMAL SALINE 1000 ML 1,000 ML IV PRN ×2 (12:55→23:06)
--- NOTE | 2019-02-14 12:56 | PDOC PROGRESS REPORT ---
Subjective Progress Note for:: 02/14/19 Subjective:: HELIO RODRIGUEZ is a 69 year old male who presented to the emergency room with an acute fever. He admits developing fever on the morning of 02/12/2019 which persisted throughout the day and was present when he was seen initially in the emergency room. He feels his fever was severe at 102 F and notes that it has been associated with dyspnea worsened by exertion and has been accompanied by a cough productive of thick yellow mucus. He denies other associated or ac companying symptoms. He denies prior similar episodes and has not identified any aggravating or ameliorating factors for his fever. In the emergency room he was found to have mild hypotension with a lactic acid of 2.9 and a minimally elevated white blood count at 11.3. He did have a right perihilar pneumonia on his chest x-ray and was subsequently started on antibiotic therapy for a community-acquired pneumonia and admitted for further evaluation and treatment. 02/14/2018. No acute events overnight. Patient comfortably sitting in bed enjoying his breakfast, in no apparent distress, on supplemental oxygen, stating that his shortness of breath has resolved, denies any fever, chills, nausea, vomiting, diarrhea, constipation or any urinary symptoms. Ambulatory, p.o. tolerant, having normal bowel and bladder movements. Reason For Visit: RIGHT PERIHILAR PNEUMONIA,SIRS,ACUTE RESPIRATORY Physical Exam Vital Signs: Temp Pulse Resp BP Pulse Ox 97.5 F 97 18 114/71 94 02/14/19 11:24 02/14/19 11:24 02/14/19 11:24 02/14/19 11:24 02/14/19 12:20 Pulse Oximeter Continuous Start: 02/13/19 05:05 Freq: RTQ4 Status: Active Protocol: Document 02/14/19 12:20 [facility] (Rec: 02/14/19 12:20 [facility] [id number]) Pulse Oximetry Assessment Oxygen Saturation (92-100) 94 Oxygen Flow Rate (L/min) 2 Oxygen Delivery Method Nasal Cannula Equipment Usage Equipment in Use Continuous SpO2 Machine # [id number] Intake & Output 02/13/19 02/14/19 02/15/19 06:59 06:59 06:59 Intake Total 3050 4437 250 Output Total 0 Balance 3050 4437 250 Weight 117.934 kg 122 kg General appearance: PRESENT: obese Head exam: PRESENT: atraumatic, normocephalic Neck exam: ABSENT: carotid bruit, JVD, lymphadenopathy, thyromegaly Respiratory exam: PRESENT: clear to auscultation arsenio, symmetrical. ABSENT: rales, rhonchi Cardiovascular exam: PRESENT: RRR. ABSENT: diastolic murmur, rubs, systolic murmur GI/Abdominal exam: PRESENT: normal bowel sounds, soft. ABSENT: distended, guarding, mass, organolmegaly, rebound, tenderness Neurological exam: PRESENT: alert, awake, oriented to person, oriented to place, oriented to time, oriented to situation, CN II-XII grossly intact. ABSENT: motor sensory deficit Results Laboratory Results: 02/14/19 06:06 02/14/19 06:06 02/13/19 02/13/19 02/13/19 12:06 15:35 21:45 WBC RBC Hgb Hct MCV MCH MCHC RDW Plt Count Sodium Potassium Chloride Carbon Dioxide Anion Gap BUN Creatinine Est GFR ( Amer) Glucose Lactic Acid 4.8 H 3.4 H 4.8 H Calcium 02/14/19 02/14/19 02/14/19 01:45 06:06 06:06 WBC 16.7 H RBC 4.47 Hgb 12.8 L Hct 38.1 MCV 85 MCH 28.6 MCHC 33.5 RDW 15.6 H Plt Count 252 Sodium 138.1 Potassium 3.8 Chloride 104 Carbon Dioxide 21 L Anion Gap 13 BUN 26 H Creatinine 1.19 Est GFR ( Amer) > 60 Glucose 281 H Lactic Acid 2.7 H Calcium 7.9 L 02/14/19 06:06 WBC RBC Hgb Hct MCV MCH MCHC RDW Plt Count Sodium Potassium Chloride Carbon Dioxide Anion Gap BUN Creatinine Est GFR ( Amer) Glucose Lactic Acid 4.6 H Calcium 02/13/19 02/13/19 02/13/19 01:50 05:35 05:35 Creatine Kinase 588 H CK-MB (CK-2) 2.52 Troponin I 0.035 0.027 02/13/19 02/13/19 02/13/19 12:06 12:06 17:05 Creatine Kinase 649 H 601 H CK-MB (CK-2) 4.39 Troponin I < 0.012 02/13/19 17:05 Creatine Kinase CK-MB (CK-2) 5.78 H Troponin I < 0.012 Impressions: Chest X-Ray 02/13/19 01:27 IMPRESSION: Probable early right infrahilar pneumonia. Assessment and Plan - Diagnosis (1) Acute respiratory failure with hypoxia Is this a current diagnosis for this admission?: Yes Plan: Most likely due to right lower lobe pneumonia superimposed on COPD. Resolved. SPO2 WNL on 2 L nasal cannula. Continue supplemental oxygen, duo nebs, LMA, LABA, ICS, IV steroids, empiric IV antibiotics. Follow-up cultures. Evaluate for need for home oxygen. Possible discharge home tomorrow. (2) Pneumonia involving right lung Qualifiers: Lung location: lower lobe of lung Qualified Code(s): J13 - Pneumonia due to Streptococcus pneumoniae Is this a current diagnosis for this admission?: Yes Plan: Community-acquired. Likely due to gram positives including strep pneumo. Denies any history of recent travel or sick contacts. Continue empiric IV antibiotics. Switch to p.o. once symptomatic improvement. DC home on p.o. antibiotics to complete a total of 5 days. Follow-up sputum and blood culture. (3) Lactic acidosis Is this a current diagnosis for this admission?: Yes Plan: Initially thought to be due to SIRS. 2.9, 2.0, 4.8, 3.4, 4.8, 2.7, 4.6. Patient's vitals are stable, mild leukocytosis which may be due to IV steroids. I am not sure if his lactic acidosis is due to tissue hypoperfusion anymore. This could also be lactic acidosis type B as he is on high-dose metformin. We will also order the lactic acid to rule out type D lactic acidosis. Meanwhile continue volume resuscitation, IV empiric antibiotics, monitor vitals and follow-up cultures. (4) SIRS (systemic inflammatory response syndrome) Is this a current diagnosis for this admission?: Yes Plan: Resolved. SPO2 WNL on 2 L. Vitals WNL. Presented with hypoxia, leukocytosis, tachycardia and tachypnea and elevated lactic acid. Continue volume resuscitation, guided by volume status. Plan as per #1. (5) COPD (chronic obstructive pulmonary disease) Is this a current diagnosis for this admission?: Yes Plan: Not on home oxygen. Plan as per #1. (6) Diabetes mellitus type 2 in obese Is this a current diagnosis for this admission?: Yes Plan: Hemoglobin A1c 6.7. Takes metformin thousand milligrams p.o. twice daily at home. Uncontrolled while inpatient possibly due to IV steroids. Continue basal, perineal, sliding scale insulin. Hypoglycemia protocol. Accu- Chek. Restart home meds upon discharge. Outpatient PCP follow-up. (7) HLD (hyperlipidemia) Qualifiers: Hyperlipidemia type: unspecified Qualified Code(s): E78.5 - Hyperlipidemia, unspecified Is this a current diagnosis for this admission?: Yes Plan: Restart home meds. Diet and lifestyle modification recommended. (8) HTN (hypertension) Qualifiers: Hypertension type: essential hypertension Qualified Code(s): I10 - Essential (primary) hypertension Is this a current diagnosis for this admission?: Yes Plan: Normotensive. Restart home meds. Monitor vitals. Adjust meds as needed.
[2019-02-15] MEDS: LEVALBUTEROL HCL NEB 1.25 MG/3 ML AMPUL NEB SCH ×3 (00:16→16:41)
[2019-02-15] MEDS: IPRATROPIUM BROMIDE 0.02% NEB 0.5 MG/2.5 ML AMPUL NEB SCH ×3 (00:16→16:41)
[2019-02-15 05:17] LABS: HEMATOCRIT 35.4 % (37.9-51.0); HEMOGLOBIN 11.7 g/dL (13.5-17.0); MEAN CORPUSCULAR HEMOGLOBIN 28.4 pg (27.0-33.4); MEAN CORPUSCULAR HGB CONC 33.1 g/dL (32.0-36.0); MEAN CORPUSCULAR VOLUME 86 fl (80-97); PLATELET COUNT 270 10^3/uL (150-450); RED BLOOD COUNT 4.14 10^6/uL (4.35-5.55); RED CELL DISTRIBUTION WIDTH 15.5 % (11.5-14.0); WHITE BLOOD COUNT 14.2 10^3/uL (4.0-10.5)
[2019-02-15] MEDS: PIPERACILLIN SODIUM/TAZOBACTAM 3.375 GM in NORMAL SALINE 100 ML IV SCH (05:21)
[2019-02-15] MEDS: HEPARIN SOD (PORCINE) 5,000 UNIT/ML 1 ML VIAL SUBCUT SCH ×3 (05:22→22:36)
[2019-02-15] MEDS: PANTOPRAZOLE SODIUM 40 MG TABLET.DR PO SCH ×2 (05:22→16:44)
[2019-02-15] MEDS: METHYLPREDNISOLONE INJ 40 MG/1 ML SDV IV SCH (05:22)
[2019-02-15 07:20] LABS: ALBUMIN 2.5 g/dL (3.5-5.0); ALKALINE PHOSPHATASE 57 U/L (38-126); ANION GAP 8 (5-19); ASPARTATE AMINO TRANSFERASE 85 U/L (17-59); BILIRUBIN,DIRECT 0.2 mg/dL (0.0-0.4); BILIRUBIN,TOTAL 0.3 mg/dL (0.2-1.3); BLOOD UREA NITROGEN 32 mg/dL (7-20); CALCIUM 7.7 mg/dL (8.4-10.2); CARBON DIOXIDE 23 mmol/L (22-30); CHLORIDE 110 mmol/L (98-107); GLUCOSE 230 mg/dL (75-110); POTASSIUM 4.4 mmol/L (3.6-5.0); TOTAL PROTEIN 5.2 g/dL (6.3-8.2)
[2019-02-15] MEDS: INSULIN REG, HUMAN 100 UNIT/ML 3 ML VIAL (PYX) SUBCUT SCH ×7 (08:38→22:36)
[2019-02-15] MEDS: BUDESONIDE NEB 0.5 MG/2 ML AMPUL NEB SCH ×2 (09:10→20:51)
[2019-02-15] MEDS: NORMAL SALINE 1000 ML 1,000 ML IV PRN ×2 (09:27→22:59)
[2019-02-15] MEDS: FLUTICASONE/VILANTEROL 200-25 MCG/DOSE IH SCH (09:35)
[2019-02-15] MEDS: ATORVASTATIN CALCIUM 20 MG TABLET PO SCH (09:35)
[2019-02-15] MEDS: DOCUSATE SODIUM 100 MG CAPSULE PO SCH ×2 (09:36→17:24)
[2019-02-15] MEDS: INSULIN GLARGINE,HUM.REC.ANLOG 1,000 UNIT/10 ML VIAL SUBCUT SCH (09:36)
[2019-02-15] MEDS: METOPROLOL SUCCINATE 25 MG TAB.SR.24H PO SCH (09:36)
--- NOTE | 2019-02-15 16:18 | PDOC PROGRESS REPORT ---
Subjective Progress Note for:: 02/15/19 Subjective:: This is a 69-year-old male who initially presented with fever, shortness of breath and significantly productive cough. He was admitted for a right-sided pneumonia. He was started on IV antibiotics. No acute event overnight. He continues to improve. He denies chest pain or shortness of breath. He says he almost feels like he is back to his baseline. He is saturating well on 2 L by nasal cannula. We will wean him off O2 today. Switch IV steroids to oral. Will de-escalate antibiotics to levofloxacin. Reason For Visit: RIGHT PERIHILAR PNEUMONIA,SIRS,ACUTE RESPIRATORY Physical Exam Vital Signs: Temp Pulse Resp BP Pulse Ox 97.8 F 96 16 109/63 95 02/14/19 23:57 02/15/19 09:10 02/15/19 09:10 02/14/19 23:57 02/15/19 09:10 Pulse Oximeter Continuous Start: 02/13/19 05:05 Freq: RTQ4 Status: Active Protocol: Document 02/15/19 09:10 [facility] (Rec: 02/15/19 09:15 [facility] [id number]) Pulse Oximetry Assessment Oxygen Saturation (92-100) 95 Oxygen Flow Rate (L/min) 1 Oxygen Delivery Method Nasal Cannula Equipment Usage Equipment in Use Continuous SpO2 Machine # [id number] Intake & Output 02/14/19 02/15/19 02/16/19 06:59 06:59 06:59 Intake Total 4437 3480 1000 Output Total 0 Balance 4437 3480 1000 Weight 268 lb 15.423 oz 273 lb 2.444 oz General appearance: PRESENT: no acute distress, well-developed, well-nourished Head exam: PRESENT: atraumatic, normocephalic Eye exam: PRESENT: conjunctiva pink, EOMI, PERRLA. ABSENT: scleral icterus Ear exam: PRESENT: normal external ear exam Mouth exam: PRESENT: moist, tongue midline Neck exam: ABSENT: carotid bruit, JVD, lymphadenopathy, thyromegaly Respiratory exam: PRESENT: rhonchi. ABSENT: rales, wheezes Cardiovascular exam: PRESENT: RRR. ABSENT: diastolic murmur, rubs, systolic murmur Pulses: PRESENT: normal dorsalis pedis pul GI/Abdominal exam: PRESENT: normal bowel sounds, soft. ABSENT: distended, guarding, mass, organolmegaly, rebound, tenderness Rectal exam: PRESENT: deferred Extremities exam: PRESENT: full ROM. ABSENT: calf tenderness, clubbing, pedal e joselyn Neurological exam: PRESENT: alert, awake, oriented to person, oriented to place, oriented to time, oriented to situation, CN II-XII grossly intact. ABSENT: motor sensory deficit Results Laboratory Results: 02/15/19 04:42 02/15/19 04:42 02/15/19 02/15/19 02/15/19 04:42 04:42 04:42 WBC 14.2 H RBC 4.14 L Hgb 11.7 L Hct 35.4 L MCV 86 MCH 28.4 MCHC 33.1 RDW 15.5 H Plt Count 270 Sodium 140.5 Potassium 4.4 Chloride 110 H Carbon Dioxide 23 Anion Gap 8 BUN 32 H Creatinine 1.22 Est GFR ( Amer) > 60 Glucose 230 H Lactic Acid 1.8 Calcium 7.7 L Magnesium 2.8 H Total Bilirubin 0.3 AST 85 H Alkaline Phosphatase 57 Total Protein 5.2 L Albumin 2.5 L 02/13/19 02/13/19 02/13/19 01:50 05:35 05:35 Creatine Kinase 588 H CK-MB (CK-2) 2.52 Troponin I 0.035 0.027 02/13/19 02/13/19 02/13/19 12:06 12:06 17:05 Creatine Kinase 649 H 601 H CK-MB (CK-2) 4.39 Troponin I < 0.012 02/13/19 17:05 Creatine Kinase CK-MB (CK-2) 5.78 H Troponin I < 0.012 Impressions: Chest X-Ray 02/13/19 01:27 IMPRESSION: Probable early right infrahilar pneumonia. Assessment and Plan - Diagnosis (1) Acute respiratory failure with hypoxia Is this a current diagnosis for this admission?: Yes Plan: Secondary to to right lower lobe pneumonia superimposed on COPD. He is saturating well on 2 L by nasal cannula. We will wean him off O2 today. (2) Pneumonia Qualifiers: Pneumonia type: due to unspecified organism Laterality: right Lung location: middle lobe of lung Qualified Code(s): J18.1 - Lobar pneumonia, unspecified organism Is this a current diagnosis for this admission?: Yes Plan: Switch antibiotics to levofloxacin. (3) COPD (chronic obstructive pulmonary disease) Is this a current diagnosis for this admission?: Yes Plan: Continue breathing treatments. Switch IV steroids to oral. (4) HTN (hypertension) Qualifiers: Hypertension type: essential hypertension Qualified Code(s): I10 - Essential (primary) hypertension Is this a current diagnosis for this admission?: Yes Plan: Continue home meds. (5) Lactic acidosis Is this a current diagnosis for this admission?: Yes Plan: Resolved. Initially deemed to be possibly from infection versus metformin- induced. - Time Time Spent with patient: 25-34 minutes
[2019-02-15] MEDS: PREDNISONE 10 MG TABLET PO SCH (17:24)
[2019-02-16] MEDS: LEVALBUTEROL HCL NEB 1.25 MG/3 ML AMPUL NEB SCH ×2 (00:03→07:37)
[2019-02-16] MEDS: IPRATROPIUM BROMIDE 0.02% NEB 0.5 MG/2.5 ML AMPUL NEB SCH ×2 (00:03→07:37)
[2019-02-16] MEDS: PANTOPRAZOLE SODIUM 40 MG TABLET.DR PO SCH (05:25)
[2019-02-16] MEDS: HEPARIN SOD (PORCINE) 5,000 UNIT/ML 1 ML VIAL SUBCUT SCH (05:25)
[2019-02-16 07:03] LABS: HEMATOCRIT 36.6 % (37.9-51.0); HEMOGLOBIN 12.2 g/dL (13.5-17.0); MEAN CORPUSCULAR HEMOGLOBIN 28.5 pg (27.0-33.4); MEAN CORPUSCULAR HGB CONC 33.2 g/dL (32.0-36.0); MEAN CORPUSCULAR VOLUME 86 fl (80-97); PLATELET COUNT 272 10^3/uL (150-450); RED BLOOD COUNT 4.28 10^6/uL (4.35-5.55); RED CELL DISTRIBUTION WIDTH 15.7 % (11.5-14.0)
[2019-02-16] MEDS: BUDESONIDE NEB 0.5 MG/2 ML AMPUL NEB SCH (07:37)
[2019-02-16] MEDS: INSULIN REG, HUMAN 100 UNIT/ML 3 ML VIAL (PYX) SUBCUT SCH ×2 (09:53→10:05)
[2019-02-16] MEDS: FLUTICASONE/VILANTEROL 200-25 MCG/DOSE IH SCH (10:01)
[2019-02-16] MEDS: ATORVASTATIN CALCIUM 20 MG TABLET PO SCH (10:01)
[2019-02-16] MEDS: METOPROLOL SUCCINATE 25 MG TAB.SR.24H PO SCH (10:01)
[2019-02-16] MEDS: PREDNISONE 10 MG TABLET PO SCH (10:02)
[2019-02-16] MEDS: DOCUSATE SODIUM 100 MG CAPSULE PO SCH (10:03)
[2019-02-16] MEDS: INSULIN GLARGINE,HUM.REC.ANLOG 1,000 UNIT/10 ML VIAL SUBCUT SCH (10:05)
[2019-02-16 10:24] VITALS: BP 117/68
--- NOTE | 2019-02-17 17:53 | PDOC DISCHARGE SUMMARY ---
Impression - Admit/DC Date/PCP Admission Date/Primary Care Provider: 02/13/19 05:08 TAMMY CHRISTIAN MD Discharge Date: 02/16/19 - Discharge Diagnosis (1) Acute respiratory failure with hypoxia Is this a current diagnosis for this admission?: Yes (2) Pneumonia Is this a current diagnosis for this admission?: Yes (3) COPD (chronic obstructive pulmonary disease) Is this a current diagnosis for this admission?: Yes (4) HTN (hypertension) Is this a current diagnosis for this admission?: Yes (5) Lactic acidosis Is this a current diagnosis for this admission?: Yes - Additional Information Resuscitation Status: Full Code Discharge Diet: As Tolerated, Regular Discharge Activity: Activity As Tolerated, Balance Activity w/Rest Referrals: LENIN LOVING MD [ACTIVE STAFF] - 02/23/19 9:00 am TAMMY CHRISTIAN MD [Primary Care Provider] - 02/24/19 2:00 pm Prescriptions: Glimepiride 1 mg PO DAILY #30 tablet Levofloxacin [Levaquin 500 mg Tablet] 500 mg PO DAILY 5 Days #5 tablet Home Medications: Albuterol Sulfate [Proair HFA Inhalation Aerosol 8.5 gm MDI] 2 puff IH Q4 02/13/19 Atorvastatin Calcium [Lipitor 20 mg Tablet] 20 mg PO DAILY 02/13/19 Budesonide/Formoterol Fumarate [Symbicort HFA 160-4.5 mcg Inhaler 6 gm] 2 puff IH Q12 02/13/19 Fenofibrate 54mg 54 mg PO QAM 02/13/19 Hydrocodone Bit/Acetaminophen [Hydrocodon-Acetaminophn 10-325] 1 tab PO Q6HP PRN 02/13/19 Ibuprofen [Motrin 800 mg Tablet] 800 mg PO Q8HP PRN 02/13/19 Lisinopril [Prinivil] 20 mg PO DAILY 02/13/19 Metoprolol Succinate [Toprol Xl 25 mg Tab.sr] 25 mg PO DAILY 02/13/19 Glimepiride 1 mg PO DAILY #30 tablet 02/16/19 Levofloxacin [Levaquin 500 mg Tablet] 500 mg PO DAILY 5 Days #5 tablet 02/16/19 History of Present Illiness History of Present Illness: Admitting hospitalist's H&P: HELIO RODRIGUEZ is a 69 year old male who presented to the emergency room with an acute fever. He admits developing fever on the morning of 02/12/2019 which persisted throughout the day and was present when he was seen initially in the emergency room. He feels his fever was severe at 102 F and notes that it has been associated with dyspnea worsened by exertion and has been accompanied by a cough productive of thick yellow mucus. He denies other associated or accompanying symptoms. He denies prior similar episodes and has not identified any aggravating or ameliorating factors for his fever. In the emergency room he was found to have mild hypotension with a lactic acid of 2.9 and a minimally elevated white blood count at 11.3. He did have a right perihilar pneumonia on his chest x-ray and was subsequently started on antibiotic therapy for a community-acquired pneumonia and admitted for further evaluation and treatment. Hospital Course Hospital Course: This is a 69-year-old male who initially presented with fever, shortness of breath and significantly productive cough. He was admitted for a right-sided pneumonia. He was started on IV antibiotics and breathing treatments. He significantly improved with the above treatment. He was eventually weaned off O2. He returned to his baseline and was able to ambulate the hallway on room air without any desaturation or acute issues. He will be discharged on levofloxacin. He also had lactic acidosis which started to trend up despite clinical improvement of his pneumonia. Suspected metformin induced lactic acidosis. His metformin was hence was switched to glimepiride. Physical Exam Vital Signs: Temp Pulse Resp BP Pulse Ox 97.6 F 74 17 117/68 93 02/16/19 10:21 02/16/19 10:21 02/16/19 10:21 02/16/19 10:21 02/16/19 11:20 Pulse Oximeter Continuous Start: 02/13/19 05:05 Freq: RTQ4 Status: Discharge Protocol: Document 02/16/19 11:20 HCR (Rec: 02/16/19 11:21 HCR [id number]) Pulse Oximetry Assessment Oxygen Saturation (92-100) 93 Oxygen Delivery Method Room Air Fraction of Inspired Oxygen (FIO2) 21 Equipment Usage Equipment Discontinued Continuous SpO2 Machine # 5 Intake & Output 02/16/19 02/17/19 02/18/19 06:59 06:59 06:59 Intake Total 3890 Output Total 475 Balance 3415 Weight 273 lb 13.026 oz General appearance: PRESENT: no acute distress, well-developed, well-nourished Head exam: PRESENT: atraumatic, normocephalic Eye exam: PRESENT: conjunctiva pink, EOMI, PERRLA. ABSENT: scleral icterus Ear exam: PRESENT: normal external ear exam Mouth exam: PRESENT: moist, tongue midline Neck exam: ABSENT: carotid bruit, JVD, lymphadenopathy, thyromegaly Respiratory exam: PRESENT: clear to auscultation arsenio. ABSENT: rales, rhonchi, wheezes Cardiovascular exam: PRESENT: RRR. ABSENT: diastolic murmur, rubs, systolic murmur Pulses: PRESENT: normal dorsalis pedis pul GI/Abdominal exam: PRESENT: normal bowel sounds, soft. ABSENT: distended, guarding, mass, organolmegaly, rebound, tenderness Rectal exam: PRESENT: deferred Extremities exam: PRESENT: full ROM. ABSENT: calf tenderness, clubbing, pedal edema Neurological exam: PRESENT: alert, awake, oriented to person, oriented to place, oriented to time, oriented to situation, CN II-XII grossly intact. ABSENT: motor sensory deficit Results Laboratory Results: WBC 11.0 10^3/uL (4.0-10.5) H 02/16/19 06:19 RBC 4.28 10^6/uL (4.35-5.55) L 02/16/19 06:19 Hgb 12.2 g/dL (13.5-17.0) L 02/16/19 06:19 Hct 36.6 % (37.9-51.0) L 02/16/19 06:19 MCV 86 fl (80-97) 02/16/19 06:19 MCH 28.5 pg (27.0-33.4) 02/16/19 06:19 MCHC 33.2 g/dL (32.0-36.0) 02/16/19 06:19 RDW 15.7 % (11.5-14.0) H 02/16/19 06:19 Plt Count 272 10^3/uL (150-450) 02/16/19 06:19 Lymph % (Auto) Not Reportable 02/13/19 01:50 [place] % (Auto) Not Reportable 02/13/19 01:50 Eos % (Auto) Not Reportable 02/13/19 01:50 Baso % (Auto) Not Reportable 02/13/19 01:50 Absolute Neuts (auto) Not Reportable 02/13/19 01:50 Absolute Lymphs (auto) Not Reportable 02/13/19 01:50 Absolute Monos (auto) Not Reportable 02/13/19 01:50 Absolute Eos (auto) Not Reportable 02/13/19 01:50 Absolute Basos (auto) Not Reportable 02/13/19 01:50 Total Counted 100 02/13/19 01:50 Seg Neutrophils % Not Reportable 02/13/19 01:50 Seg Neuts % (Manual) 82 % (42-78) H 02/13/19 01:50 Band Neutrophils % 4 % (3-5) 02/13/19 01:50 Lymphocytes % (Manual) 6 % (13-45) L 02/13/19 01:50 Monocytes % (Manual) 8 % (3-13) 02/13/19 01:50 Eosinophils % (Manual) 0 % (0-6) 02/13/19 01:50 Basophils % (Manual) 0 % (0-2) 02/13/19 01:50 Abs Neuts (Manual) 9.7 10^3/uL (1.7-8.2) H 02/13/19 01:50 Abs Lymphs (Manual) 0.7 10^3/uL (0.5-4.7) 02/13/19 01:50 Abs Monocytes (Manual) 0.9 10^3/uL (0.1-1.4) 02/13/19 01:50 Absolute Eos (Manual) 0.0 10^3/uL (0.0-0.6) 02/13/19 01:50 Abs Basophils (Manual) 0.0 10^3/uL (0.0-0.2) 02/13/19 01:50 Platelet Comment ADEQUATE 02/13/19 01:50 Anisocytosis SLIGHT 02/13/19 01:50 PT 15.6 SEC (11.4-15.4) H 02/13/19 01:50 INR 1.23 02/13/19 01:50 Sodium 140.5 mmol/L (137-145) 02/15/19 04:42 Potassium 4.4 mmol/L (3.6-5.0) 02/15/19 04:42 Chloride 110 mmol/L (98-107) H 02/15/19 04:42 Carbon Dioxide 23 mmol/L (22-30) 02/15/19 04:42 Anion Gap 8 (5-19) 02/15/19 04:42 BUN 32 mg/dL (7-20) H 02/15/19 04:42 Creatinine 1.22 mg/dL (0.52-1.25) 02/15/19 04:42 Est GFR ( Amer) > 60 (>60) 02/15/19 04:42 Est GFR (MDRD) Non-Af 59 (>60) L 02/15/19 04:42 Glucose 230 mg/dL (75-110) H 02/15/19 04:42 POC Glucose 75 mg/dL (70-110) 02/16/19 08:01 Hemoglobin A1c % 6.7 % (4.7-6.0) H 02/14/19 06:06 Lactic Acid 1.8 mmol/L (0.7-2.1) 02/15/19 04:42 Calcium 7.7 mg/dL (8.4-10.2) L 02/15/19 04:42 Magnesium 2.8 mg/dL (1.6-2.3) H 02/15/19 04:42 Total Bilirubin 0.3 mg/dL (0.2-1.3) 02/15/19 04:42 Direct Bilirubin 0.2 mg/dL (0.0-0.4) 02/15/19 04:42 Neonat Total Bilirubin Not Reportable 02/15/19 04:42 Neonat Direct Bilirubin Not Reportable 02/15/19 04:42 Neonat Indirect Bili Not Reportable 02/15/19 04:42 AST 85 U/L (17-59) H 02/15/19 04:42 ALT 129 U/L (<50) 02/15/19 04:42 Alkaline Phosphatase 57 U/L (38-126) 02/15/19 04:42 Creatine Kinase 601 U/L (55-170) H 02/13/19 17:05 CK-MB (CK-2) 5.78 ng/mL (<4.55) H 02/13/19 17:05 Troponin I < 0.012 ng/mL 02/13/19 17:05 Total Protein 5.2 g/dL (6.3-8.2) L 02/15/19 04:42 Albumin 2.5 g/dL (3.5-5.0) L 02/15/19 04:42 Urine Color YELLOW 02/13/19 06:14 Urine Appearance CLEAR 02/13/19 06:14 Urine pH 6.0 (5.0-9.0) 02/13/19 06:14 Ur Specific [place] 1.009 02/13/19 06:14 Urine Protein NEGATIVE mg/dL (NEGATIVE) 02/13/19 06:14 Urine Glucose (UA) >=500 mg/dL (NEGATIVE) H 02/13/19 06:14 Urine Ketones NEGATIVE mg/dL (NEGATIVE) 02/13/19 06:14 Urine Blood SMALL (NEGATIVE) H 02/13/19 06:14 Urine Nitrite NEGATIVE (NEGATIVE) 02/13/19 06:14 Urine Bilirubin NEGATIVE (NEGATIVE) 02/13/19 06:14 Urine Urobilinogen NEGATIVE mg/dL (<2.0) 02/13/19 06:14 Ur Leukocyte Esterase NEGATIVE (NEGATIVE) 02/13/19 06:14 Urine WBC (Auto) 1 /HPF 02/13/19 06:14 Urine RBC (Auto) 1 /HPF 02/13/19 06:14 U Hyaline Cast (Auto) 1 /LPF 02/13/19 06:14 Squamous Epi Cells Auto <1 /HPF 02/13/19 06:14 Urine Mucus (Auto) RARE /LPF 02/13/19 06:14 Urine Ascorbic Acid NEGATIVE (NEGATIVE) 02/13/19 06:14 02/13/19 02/13/19 02/13/19 01:50 05:35 12:06 CK-MB (CK-2) 2.52 4.39 Troponin I 0.035 0.027 < 0.012 02/13/19 17:05 CK-MB (CK-2) 5.78 H Troponin I < 0.012 Impressions: Chest X-Ray 02/13/19 01:27 IMPRESSION: Probable early right infrahilar pneumonia. Stroke Is this a Stroke Patient?: No Acute Heart Failure - Is this a Heart Failure Patient?: No
== END 2019-02-16 12:06 | disposition home or self-care (01) | DRG 193 ==
LOC: ER 01:10 → EH 05:08 → 3S 09:19
PROVIDERS: ADMIT Emergency Medicine; ATTEND Emergency Medicine
DX: J18.9 Pneumonia, unspecified organism (principal); J96.01 Acute respiratory failure with hypoxia; E87.2 Acidosis; J44.0 Chronic obstructive pulmonary disease with (acute) lower respiratory infection; T38.3X5A Adverse effect of insulin and oral hypoglycemic [antidiabetic] drugs, initial encounter; Z79.84 Long term (current) use of oral hypoglycemic drugs; I25.10 Atherosclerotic heart disease of native coronary artery without angina pectoris; I25.2 Old myocardial infarction; I10 Essential (primary) hypertension; E78.5 Hyperlipidemia, unspecified; J44.9 Chronic obstructive pulmonary disease, unspecified; E66.9 Obesity, unspecified; M19.90 Unspecified osteoarthritis, unspecified site; F10.20 Alcohol dependence, uncomplicated; Z79.82 Long term (current) use of aspirin; Z82.49 Family history of ischemic heart disease and other diseases of the circulatory system; Z83.3 Family history of diabetes mellitus; Z79.899 Other long term (current) drug therapy; Z91.041 Radiographic dye allergy status; Z23 Encounter for immunization
CPT/HCPCS: 36415; 71045; 80048; 80053; 81001; 82550; 82553; 82962; 83036; 83605; 83735; 84484; 85025; 85027; 85610; 87040; 87070; 87205; 90686; 93005; 93010; 94640; 94762; 96361; 96365; 96367; 96375; 99285; J0456; J0696; J1644; J1815; J2543; J2920; J2930; J3370; J3490; J7030; J7050; J7060; J7120; J7512

== ENCOUNTER 2019-09-12 21:05 | Emergency (ER) | payer MEDICARE, MEDICAID ==
[2019-09-12] MEDS ORDERED: NORMAL SALINE 1000 ML 1,000 ML IV ONE ×2 (21:20→21:56)
[2019-09-12] MEDS ORDERED: ETOMIDATE INJ/PF 20 MG/10 ML SDV IV ONE (21:26)
[2019-09-12 21:35] LABS: ABSOLUTE BASOPHILS # (AUTO) 0.1 10^3/uL (0.0-0.2); ABSOLUTE EOSINOPHILS # (AUTO) 0.2 10^3/uL (0.0-0.6); ABSOLUTE LYMPHOCYTES (AUTO) 3.4 10^3/uL (0.5-4.7); ABSOLUTE MONOCYTES (AUTO) 1.5 10^3/uL (0.1-1.4); ABSOLUTE NEUT (AUTO) 10.2 10^3/uL (1.7-8.2); BASOPHILS % (AUTO) 0.3 % (0-2); EOSINOPHILS % (AUTO) 1.2 % (0-6); HEMATOCRIT 46.1 % (37.9-51.0); HEMOGLOBIN 15.3 g/dL (13.5-17.0); LYMPHOCYTES % (AUTO) 22.3 % (13-45); MEAN CORPUSCULAR HEMOGLOBIN 28.9 pg (27.0-33.4); MEAN CORPUSCULAR HGB CONC 33.1 g/dL (32.0-36.0); MEAN CORPUSCULAR VOLUME 87 fl (80-97); MONOCYTES % (AUTO) 9.7 % (3-13); PLATELET COUNT 266 10^3/uL (150-450); RED BLOOD COUNT 5.27 10^6/uL (4.35-5.55); RED CELL DISTRIBUTION WIDTH 15.2 % (11.5-14.0); SEGMENTED NEUTROPHILS % (AUTO) 66.5 % (42-78); TOTAL CELLS COUNTED % (AUTO) 100 %; WHITE BLOOD COUNT 15.4 10^3/uL (4.0-10.5)
[2019-09-12 21:47] LABS: INTERNATIONAL RATION (INR) 1.01; PROTHROMBIN TIME 13.3 SEC (11.4-15.4)
--- NOTE | 2019-09-12 21:49 | ER Document Report ---
ED General <MRAIAJOSE HIGUERA - Last Filed: 09/12/19 22:20> - General Mode of Arrival: Ambulatory Information source: Patient TRAVEL OUTSIDE OF THE [place] IN LAST 30 DAYS: No - HPI Onset: Other - over the last few days Onset/Duration: Sudden Quality of pain: Pressure Severity: Moderate Pain Level: 2 Associated symptoms: Chest pain, Shortness of breath, Other - dizziness Exacerbated by: Denies Relieved by: Denies Similar symptoms previously: No Recently seen / treated by doctor: No <BARALISE - Last Filed: 09/12/19 22:37> - General Chief Complaint: Chest Pain Stated Complaint: CHEST PAIN Time Seen by Provider: 09/12/19 21:18 Primary Care Provider: TAMMY CHRISTIAN MD [Primary Care Provider] - Follow up as needed - HPI Notes: 69 year old former male with a history of CAD s/p stents x 2, HTN, HLD, DM here in the ER for off and on chest pain (made better with nitro) along with dizziness and light headedness. The patient works as a [employer] and he felt dizzy at work so he checked into the ER. In triage the patient had an EKG performed showing a wide complex tachycardia with a rate in the 200s. The patient was brought directly back to a Trauma ER Room. Patient was chest pain free on ER. (YOSVANYALISE Huitron) - Related Data Allergies/Adverse Reactions: mri dye Allergy (Uncoded 09/15/18 11:42) Past Medical History - General Information source: Patient - Social History Smoking Status: Former Smoker Frequency of alcohol use: Occasional Drug Abuse: None Family History: CAD, DM, Hypertension, Malignancy - Past Medical History Cardiac Medical History: Reports: Hx Coronary Artery Disease, Hx Heart Attack, Hx Hypercholesterolemia, Hx Hypertension Pulmonary Medical History: Reports: Hx Asthma, Hx Bronchitis, Hx COPD Neurological Medical History: Denies: Hx Cerebrovascular Accident, Hx Seizures Endocrine Medical History: Reports: Hx Diabetes Mellitus Type 2. Denies: Hx Diabetes Mellitus Type 1, Hx Hyperthyroidism, Hx Hypothyroidism Renal/ Medical History: Denies: Hx Peritoneal Dialysis GI Medical History: Denies: Hx Cirrhosis, Hx Crohn's Disease, Hx Hepatitis, Hx Hiatal Hernia, Hx Ulcer, Hx Ulcerative Colitis Musculoskeletal Medical History: Reports Hx Arthritis, Denies Hx Gout Skin Medical History: Denies Hx Eczema, Denies Hx Psoriasis Infectious Medical History: Denies: Hx Hepatitis Past Surgical History: Reports: Hx Cardiac Catheterization, Hx Cardiac Surgery - stents x 2, Hx Coronary Artery Bypass Graft, Hx Coronary Stent - X 2, Hx Open Heart Surgery - 2003 STENTS, Hx Orthopedic Surgery. Denies: Hx Pacemaker <ALISE BAR - Last Filed: 09/12/19 22:37> Physical Exam - Vital signs Vitals: Temp 98.3 F 09/12/19 21:05 Course - Laboratory Result Diagrams: 09/12/19 21:21 09/12/19 21:21 <MARIAJOSE HIGUERA - Last Filed: 09/12/19 22:20> - Laboratory Result Diagrams: 09/12/19 21:21 09/12/19 21:21 - Diagnostic Test Radiology reviewed: Image reviewed, Reports reviewed - EKG Interpretation by Me Rate: Tachycardia Rhythm: V.Tach Vevay/QRS: Left axis deviation When compared to previous EKG there are: Changes noted <ALISE BAR - Last Filed: 09/12/19 22:37> - Re-evaluation Re-evalutation: 09/12/19 21:49 The patient arrived in a wide complex tachycardia with a rate in the 200s concerning for Vtach. I consulted Dr. Bran of Cardiology and he agreed with Synchronized Cardioversion given the patient has been having chest pain and is hypotensive. Etomidate was used for sedation and patient was cardioverted with 100J. First attempt at 50J was unsuccessful. 09/12/19 22:02 The patient's EKG after cardioversion is concerning for an inferior STEMI. Dr. Bran of Cardiology agrees. [facility] was therefore consulted. The ER attending at [facility] requested I page Dr. Adams of Cardiology given the patient's atypical possible STEMI presentation as there is question if lytics sh ould be given or not. 09/12/19 22:31 Dr. Adams at [facility] does not think the patient meets STEMI criteria given the ST elevations appears to be old since the patient has an old RBBB. Plan will therefore be to transfer patient to [facility] on Heparin and Amiodarone drips. Patient remains chest pain free at this time. (ALISE BAR) - Vital Signs Vital signs: Temp Pulse Resp BP Pulse Ox 98.3 F 09/12/19 21:05 - Laboratory Laboratory results interpreted by me: 09/12/19 09/12/19 09/12/19 21:21 21:21 21:21 WBC 15.4 H RDW 15.2 H Absolute Neuts (auto) 10.2 H Absolute Monos (auto) 1.5 H Est GFR (MDRD) Non-Af 59 L Glucose 152 H NT-Pro-B Natriuret Pep 181 H - EKG Interpretation by Me Additional EKG results interpreted by me: 09/12/19 22:30 Repeat EKG after cardioversion shows sinus rhythm with RBBB and prior inferior infarct (similar to previous EKGs). (ALISE BAR) Procedures - Conscious Sedation Conscious sedation Consent obtained: Yes Indication: Sedation for cardioversion Prior complications: Procedural sedation Pt with a mild systemic disease.: P2. - ASA Classification. Airway Evaluation: Large tongue, Obese Mallampati Classification: Class 3 Used during procedure: Suction available, IV access obtained, Pulse ox on pt., box sealing machine catcher on pt. Medications administered: Etomidate - 15 mg Reversal agents: None I personally performed/intraservice time: Sedation, 30 min or less <MARIAJOSE HIGUERA - Last Filed: 09/12/19 22:20> - Additional Procedures Cardioversion/Defib Additional Procedures: Cardioversion/defib <ALISE BAR - Last Filed: 09/12/19 22:37> - Additional Procedures Cardioversion/Defib Notes: 09/12/19 21:49 Patient was sedated with etomidate (see sedation note) and cardioverted by me. First attempt at 50J Synchronized Cardioversion was unsuccessful but second attempt at 100J was successful. (ALISE BAR) Critical Care Note - Critical Care Note Total time excluding time spent on procedures (mins): 75 <ALISE BAR - Last Filed: 09/12/19 22:37> Discharge <MARIAJOSE HIGUERA - Last Filed: 09/12/19 22:20> <ALISE BAR - Last Filed: 09/12/19 22:37> - Discharge Clinical Impression: Ventricular tachycardia Chest pain Qualifiers: Chest pain type: unspecified Qualified Code(s): R07.9 - Chest pain, unspecified Condition: Serious Disposition: [facility] Referrals: TAMMY CHRISTIAN MD [Primary Care Provider] - Follow up as needed
[2019-09-12 22:03] LABS: ALBUMIN 4.4 g/dL (3.5-5.0); ALKALINE PHOSPHATASE 58 U/L (38-126); ANION GAP 12 (5-19); ASPARTATE AMINO TRANSFERASE 34 U/L (17-59); BILIRUBIN,TOTAL 0.3 mg/dL (0.2-1.3); BLOOD UREA NITROGEN 19 mg/dL (7-20); CALCIUM 9.2 mg/dL (8.4-10.2); CARBON DIOXIDE 22 mmol/L (22-30); CHLORIDE 104 mmol/L (98-107); GLUCOSE 152 mg/dL (75-110); POTASSIUM 4.7 mmol/L (3.6-5.0); TOTAL PROTEIN 6.8 g/dL (6.3-8.2)
[2019-09-12 22:14] LABS: TROPONIN I 0.101 ng/mL
--- NOTE | 2019-09-12 22:18 | RADIOLOGY REPORT (SQ) ---
EXAM DESCRIPTION: XR CHEST 1 VIEW COMPLETED DATE/TME: 09/12/2019 21:27 CLINICAL HISTORY: 69 years, Male, eval for chest pain COMPARISON: Prior chest radiograph from 02/13/2019 NUMBER OF VIEWS: One TECHNIQUE: Single frontal view of the chest was obtained portably LIMITATIONS: None. FINDINGS: Cardiac and mediastinal contours are stable. Lungs are clear. No pleural effusion or pneumothorax. IMPRESSION: No acute disease. copyright 2010 [employer]- All Rights Reserved
[2019-09-12] MEDS ORDERED: ASPIRIN 325 MG TABLET PO ONE (22:21)
[2019-09-12] MEDS ORDERED: AMIODARONE HCL 150 MG in DEXTROSE 5%-WATER 100 ML IV ONE (22:24)
[2019-09-12] MEDS ORDERED: HEPARIN SODIUM,PORCINE/D5W 25,000 UNIT/250 ML RTUINJ IV PRN (22:26)
[2019-09-12] MEDS ORDERED: HEPARIN SOD (PORCINE) 1,000 UNIT/ML 10 ML VIAL IV ONE (22:26)
[2019-09-12] MEDS ORDERED: DEXTROSE 5%-WATER 500 ML with AMIODARONE HCL 900 MG IV PRN ×2 (22:28)
[2019-09-12] MEDS ORDERED: AMIODARONE HCL INJ 150 MG/3 ML VIAL IV ONE (22:45)
[2019-09-12 23:30] VITALS: BP 99/61
--- NOTE | 2019-09-12 23:42 | EKG REPORT ---
SEVERITY:- ABNORMAL ECG - SINUS RHYTHM VENTRICULAR PREMATURE COMPLEX IVCD, CONSIDER ATYPICAL RBBB INFERIOR INFARCT, AGE INDETERMINATE : Confirmed by: Brittney Cameron MD 12-Sep-2019 23:41:57
--- NOTE | 2019-09-12 23:43 | EKG REPORT ---
SEVERITY:- ABNORMAL ECG - EXTREME TACHYCARDIA WITH WIDE COMPLEX, NO FURTHER RHYTHM ANALYSIS ATTEMPTED : Confirmed by: Brittney Cameron MD 12-Sep-2019 23:42:25
[2019-09-13] MEDS ORDERED: HEPARIN SOD (PORCINE) 1,000 UNIT/ML 10 ML VIAL IV PRN (01:26)
== END 2019-09-13 00:16 | disposition short-term general hospital (02) ==
LOC: ER 21:05
DX: I47.2 Ventricular tachycardia (principal); R07.9 Chest pain, unspecified; R06.02 Shortness of breath; R42 Dizziness and giddiness; I25.10 Atherosclerotic heart disease of native coronary artery without angina pectoris; E78.00 Pure hypercholesterolemia, unspecified; I10 Essential (primary) hypertension; J44.9 Chronic obstructive pulmonary disease, unspecified; E11.9 Type 2 diabetes mellitus without complications; I25.2 Old myocardial infarction; Z95.1 Presence of aortocoronary bypass graft
CPT/HCPCS: 93005; 96376; 99291; 99292; 96361; 96365; 96368; 36415; 83735; 85025; 85610; 85730; 80053; 84484; 83880; 71045; 93010; 92960; J1644 ×2; A9270; J7060; J7030; J3490; J0282

== ENCOUNTER 2019-09-17 18:45 | Emergency (ER) | payer MEDICARE, MEDICAID ==
--- NOTE | 2019-09-17 19:33 | RADIOLOGY REPORT (SQ) ---
EXAM DESCRIPTION: CHEST 2 VIEWS IMAGES COMPLETED DATE/TIME: 09/17/2019 7:25 pm REASON FOR STUDY: chest pain COMPARISON: 09/12/2019. EXAM PARAMETERS: NUMBER OF VIEWS: two views TECHNIQUE: Digital Frontal and Lateral radiographic views of the chest acquired. RADIATION DOSE: NA LIMITATIONS: none FINDINGS: LUNGS AND PLEURA: No opacities, masses or pneumothorax. No pleural effusion. MEDIASTINUM AND HILAR STRUCTURES: No masses or contour abnormalities. HEART AND VASCULAR STRUCTURES: Heart normal size. No evidence for failure. BONES: No acute findings. Degenerative changes in the spine. HARDWARE: Pacemaker. OTHER: No other significant finding. IMPRESSION: NO ACUTE RADIOGRAPHIC FINDING IN THE CHEST. TECHNICAL DOCUMENTATION: JOB ID: [id number] 2010 [employer]- All Rights Reserved Reading location - IP/workstation name: [email or web address]
[2019-09-17 19:54] LABS: ABSOLUTE EOSINOPHILS # (AUTO) 0.2 10^3/uL (0.0-0.6); ABSOLUTE MONOCYTES (AUTO) 0.8 10^3/uL (0.1-1.4); ABSOLUTE NEUT (AUTO) 7.3 10^3/uL (1.7-8.2); BASOPHILS % (AUTO) 0.5 % (0-2); EOSINOPHILS % (AUTO) 1.6 % (0-6); HEMATOCRIT 40.6 % (37.9-51.0); HEMOGLOBIN 14.1 g/dL (13.5-17.0); LYMPHOCYTES % (AUTO) 19.4 % (13-45); MEAN CORPUSCULAR HEMOGLOBIN 29.4 pg (27.0-33.4); MEAN CORPUSCULAR HGB CONC 34.7 g/dL (32.0-36.0); MEAN CORPUSCULAR VOLUME 85 fl (80-97); MONOCYTES % (AUTO) 7.6 % (3-13); PLATELET COUNT 233 10^3/uL (150-450); RED BLOOD COUNT 4.78 10^6/uL (4.35-5.55); RED CELL DISTRIBUTION WIDTH 15.1 % (11.5-14.0); SEGMENTED NEUTROPHILS % (AUTO) 70.9 % (42-78); TOTAL CELLS COUNTED % (AUTO) 100 %; WHITE BLOOD COUNT 10.3 10^3/uL (4.0-10.5)
[2019-09-17 19:59] LABS: INTERNATIONAL RATION (INR) 0.98
--- NOTE | 2019-09-17 20:05 | ER Document Report ---
ED General - General Chief Complaint: Chest Pain Stated Complaint: RIB PAIN Time Seen by Provider: 09/17/19 19:44 Primary Care Provider: TAMMY CHRISTIAN MD [Primary Care Provider] - Follow up as needed Notes: per triage notes 09/17/19 18:50 - ED Nursing Note by [facility] Num: [id number] : 1950 Patient Age: 69 pt reports he has sharp pain under ribs. reports just had cardiac cath and the next day had a pacemaker/defib placed. reports started with the pain today. approx 3 hours ago. states he is wearing a sling because he is not supposed to move the arm. pt is alert and oriented. resp are even and unlabored. speaking in full sentences. my notes 69-year-old male arrives with chief complaint of severe pain underneath his ribs status post cardiac cath with pacemaker defibrillator placement. 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 Patient reports today began to have pain pointing to his left upper quadrant anterior rib area. Patient reports he was seen here on Thursday and shipped to [facility] in [place] where Dr. Hawley performed a heart catheterization to his right arm. The next day on he had a pacemaker defibrillator placed in his left chest. He has been having some swelling and bruising to his left axillary area and to his left pectoral area. The area is approximately 8 to 10 cm in diameter. TRAVEL OUTSIDE OF THE [place] IN LAST 30 DAYS: No - HPI Onset: This afternoon Onset/Duration: Sudden, Persistent, Worse Quality of pain: Achy Severity: Moderate Pain Level: 3 Associated symptoms: None, Chest pain Exacerbated by: Denies, Deep breathing Relieved by: Denies Similar symptoms previously: No Recently seen / treated by doctor: No - Related Data Allergies/Adverse Reactions: mri dye Allergy (Uncoded 09/17/19 18:49) Home Medications: cardiac medications Past Medical History - General Information source: Patient - Social History Smoking Status: Former Smoker Cigarette use (# per day): No Chew tobacco use (# tins/day): No Smoking Education Provided: No Frequency of alcohol use: Occasional Drug Abuse: None Lives with: Family Family History: Reviewed & Not Pertinent, CAD, DM, Hypertension, Malignancy Patient has homicidal ideation: No - Past Medical History Cardiac Medical History: Reports: Hx Coronary Artery Disease, Hx Heart Attack, Hx Hypercholesterolemia, Hx Hypertension Pulmonary Medical History: Reports: Hx Asthma, Hx Bronchitis, Hx COPD Neurological Medical History: Denies: Hx Cerebrovascular Accident, Hx Seizures Endocrine Medical History: Reports: Hx Diabetes Mellitus Type 2. Denies: Hx Diabetes Mellitus Type 1, Hx Hyperthyroidism, Hx Hypothyroidism Renal/ Medical History: Denies: Hx Peritoneal Dialysis GI Medical History: Denies: Hx Cirrhosis, Hx Crohn's Disease, Hx Hepatitis, Hx Hiatal Hernia, Hx Ulcer, Hx Ulcerative Colitis Musculoskeletal Medical History: Reports Hx Arthritis, Denies Hx Gout Skin Medical History: Denies Hx Eczema, Denies Hx Psoriasis Infectious Medical History: Denies: Hx Hepatitis Past Surgical History: Reports: Hx Cardiac Catheterization, Hx Cardiac Surgery - stents x 2, Hx Coronary Artery Bypass Graft, Hx Coronary Stent - X 2, Hx Open Heart Surgery - 2003 STENTS, Hx Orthopedic Surgery. Denies: Hx Pacemaker Review of Systems - Review of Systems Constitutional: No symptoms reported EENT: No symptoms reported Cardiovascular: See HPI, Chest pain Respiratory: No symptoms reported Gastrointestinal: No symptoms reported Genitourinary: No symptoms reported Male Genitourinary: No symptoms reported Musculoskeletal: No symptoms reported Skin: No symptoms reported Hematologic/Lymphatic: No symptoms reported Neurological/Psychological: No symptoms reported Physical Exam - Vital signs Vitals: Temp 97.4 F 09/17/19 18:49 Interpretation: Normal - HEENT Head: Normocephalic, Atraumatic Eyes: Normal Pupils: PERRL Mouth/Lips: Normal Mucous membranes: Normal Pharynx: Normal Neck: Normal - Respiratory Respiratory status: No respiratory distress Chest status: Nontender Breath sounds: Normal Chest palpation: Normal - Cardiovascular Rhythm: Regular Heart sounds: Normal auscultation Murmur: No - Abdominal Inspection: Normal Distension: No distension Bowel sounds: Normal Tenderness: Nontender Organomegaly: No organomegaly - Rectal Hemorrhoids: Other - deferred - Genitourinary Tenderness: Other - deferred - Back Back: Normal - Extremities General upper extremity: Normal inspection General lower extremity: Normal inspection - Neurological Neuro grossly intact: Yes Cognition: Normal Orientation: AAOx4 Jorge Coma Scale Eye Opening: Spontaneous Leroy Coma Scale Verbal: Oriented Leroy Coma Scale Motor: Obeys Commands Jorge Coma Scale Total: 15 Speech: Normal Motor strength normal: LUE, RUE, LLE, RLE Sensory: Normal - Psychological Associated symptoms: Normal affect - Skin Skin Temperature: Warm Skin Moisture: Dry Skin Color: Erythema - And edema around the left chest caudal to the pacemaker defibrillator placement. This appears to be early cellulitis Course - Vital Signs Vital signs: Temp Pulse Resp BP Pulse Ox 97.4 F 17 119/62 97 09/17/19 18:49 09/17/19 23:01 09/17/19 23:01 09/17/19 23:01 - Laboratory Result Diagrams: 09/17/19 19:30 09/17/19 19:30 Laboratory results interpreted by me: 09/17/19 09/17/19 19:30 19:30 RDW 15.1 H Glucose 128 H Creatine Kinase 247 H Total Protein 6.0 L - Diagnostic Test Radiology reviewed: Reports reviewed - EKG Interpretation by Me EKG shows normal: Sinus rhythm Rate: Normal Rhythm: NSR Critical Care Note - Critical Care Note Total time excluding time spent on procedures (mins): 90 Comments: I advised patient of his normal CTA of chest except for cholelithiasis and also NAD for chest x-ray as read by radiologist for both. Also advised him of his labs. 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 It did reveal some gallbladder gallstones but no inflammation of your gallbladder. Your chest x-ray also confirmed this. Your lab tests were normal except for some muscle proteins. You have some hematoma and mild cellulitis of your left anterior chest. Take pain medicines if symptoms pain recur Prescriptions: Cephalexin Monohydrate [Keflex 500 mg Capsule] 500 mg PO BID 7 Days #14 capsule Referrals: TAMMY CHRISTIAN MD [Primary Care Provider] - Follow up as needed
[2019-09-17 20:13] LABS: ALBUMIN 3.7 g/dL (3.5-5.0); ALKALINE PHOSPHATASE 53 U/L (38-126); ANION GAP 6 (5-19); ASPARTATE AMINO TRANSFERASE 38 U/L (17-59); BILIRUBIN,TOTAL 0.5 mg/dL (0.2-1.3); BLOOD UREA NITROGEN 18 mg/dL (7-20); CALCIUM 8.5 mg/dL (8.4-10.2); CARBON DIOXIDE 30 mmol/L (22-30); CHLORIDE 102 mmol/L (98-107); CREATINE KINASE 247 U/L (55-170); GLUCOSE 128 mg/dL (75-110); POTASSIUM 4.5 mmol/L (3.6-5.0)
[2019-09-17 21:08] LABS: CREATINE KINASE MB 3.19 ng/mL (<4.55)
[2019-09-17 21:19] LABS: TROPONIN I 0.045 ng/mL
--- NOTE | 2019-09-17 21:22 | RADIOLOGY REPORT (SQ) ---
CLINICAL INDICATION: chest pain. . TECHNIQUE: CT arteriography was obtained of the chest with multiplanar MIP and/or 3-D angiographic reconstructions. This exam was performed according to our departmental dose-optimization program, which includes automated exposure control, adjustment of the mA and/or kV according to patient size and/or use of iterative reconstruction techniques. COMPARISON: None. CORRELATION: None. FINDINGS: Adequate contrast bolus. Average Hounsfield unit measurement within main pulmonary artery segment of 370. Artifact from venous opacification. There is no evidence of pulmonary embolus. Thoracic aorta is of normal caliber. The heart is prominent with coronary calcification and postsurgical change. No pericardial effusion. No bulky mediastinal adenopathy. The lungs are grossly clear. No consolidation or edema. No effusion or pneumothorax. Visualized abdominal contents demonstrates cholelithiasis without inflammatory change. Visualized bones are unremarkable. Postsurgical change from pacer left anterior chest. Presumed recent postsurgical change IMPRESSION: No evidence of pulmonary embolus. Presumed recent postsurgical change from pacer placement. Please correlate with history .
--- NOTE | 2019-09-17 21:44 | EKG REPORT ---
SEVERITY:- ABNORMAL ECG - SINUS RHYTHM VENTRICULAR PREMATURE COMPLEX RIGHT BUNDLE BRANCH BLOCK INFERIOR INFARCT, AGE INDETERMINATE : Confirmed by: Brittney Cameron MD 17-Sep-2019 21:43:31
[2019-09-17 21:56] LABS: APPEARANCE,URINE CLEAR; BILIRUBIN,URINE NEGATIVE (NEGATIVE); COLOR,URINE YELLOW; GLUCOSE, URINE NEGATIVE (NEGATIVE); KETONES,URINE NEGATIVE (NEGATIVE); LEUKOCYTE ESTERASE,URINE NEGATIVE (NEGATIVE); NITRITE,URINE NEGATIVE (NEGATIVE); PROTEIN,URINE NEGATIVE (NEGATIVE); URINE SPECIFIC GRAVITY 1.024; UROBILINOGEN,URINE NEGATIVE mg/dL (<2.0)
[2019-09-18] MEDS ORDERED: HYDROCODONE/ACETAMINOPHEN 5-325 MG (6 TAB/ER DISP) PO PRN (00:14)
[2019-09-18] MEDS ORDERED: CEPHALEXIN 500 MG CAPSULE PO ONE (00:18)
[2019-09-18 00:22] VITALS: BP 104/67
== END 2019-09-18 00:34 | disposition home or self-care (01) ==
LOC: ER 18:45
DX: R07.9 Chest pain, unspecified (principal); K80.20 Calculus of gallbladder without cholecystitis without obstruction; I25.10 Atherosclerotic heart disease of native coronary artery without angina pectoris; E11.9 Type 2 diabetes mellitus without complications; I25.2 Old myocardial infarction; J44.9 Chronic obstructive pulmonary disease, unspecified; I10 Essential (primary) hypertension; Z95.810 Presence of automatic (implantable) cardiac defibrillator; Z87.891 Personal history of nicotine dependence; Z95.5 Presence of coronary angioplasty implant and graft; Z95.1 Presence of aortocoronary bypass graft; Z79.899 Other long term (current) drug therapy; Z91.041 Radiographic dye allergy status; Z82.49 Family history of ischemic heart disease and other diseases of the circulatory system
CPT/HCPCS: 93005; 99285; 36415; 87040; 82553; 82550; 85025; 85610; 80053; 81001; 84484; 71046; 71275; 93010; A9270 ×2

== ENCOUNTER 2020-05-07 13:16 | Inpatient (IN) | payer MEDICARE, MEDICAID ==
--- NOTE | 2020-05-07 15:59 | ER Document Report ---
ED Medical Screen (RME) - General Chief Complaint: Congestion Stated Complaint: DIFFICULTY BREATHING, TIGHTNESS OF CHEST Time Seen by Provider: 05/07/20 15:36 Primary Care Provider: TAMMY CHRISTIAN MD [Primary Care Provider] - Follow up as needed TRAVEL OUTSIDE OF THE [place] IN LAST 30 DAYS: No - HPI Notes: Patient is a 70 y/o male with a hx of [place] x4 with pacemaker/defibrillator in place who presents with shortness of breath that has worsened in the past week. He reports intermittnet chest pain, productive cough and nasal congestion and drainage. He denies fever and vomiting. Patient does not take any blood thinners. - Related Data Allergies/Adverse Reactions: mri dye Allergy (Uncoded 09/17/19 18:49) Past Medical History - Past Medical History Cardiac Medical History: Reports: Hx Coronary Artery Disease, Hx Heart Attack, Hx Hypercholesterolemia, Hx Hypertension Pulmonary Medical History: Reports: Hx Asthma, Hx Bronchitis, Hx COPD Neurological Medical History: Denies: Hx Cerebrovascular Accident, Hx Seizures Endocrine Medical History: Reports: Hx Diabetes Mellitus Type 2. Denies: Hx Diabetes Mellitus Type 1, Hx Hyperthyroidism, Hx Hypothyroidism Renal/ Medical History: Denies: Hx Peritoneal Dialysis GI Medical History: Denies: Hx Cirrhosis, Hx Crohn's Disease, Hx Hepatitis, Hx Hiatal Hernia, Hx Ulcer, Hx Ulcerative Colitis Musculoskeltal Medical History: Reports Hx Arthritis, Denies Hx Gout Skin Medical History: Denies Hx Eczema, Denies Hx Psoriasis Infectious Medical History: Denies: Hx Hepatitis Past Surgical History: Reports: Hx Cardiac Catheterization, Hx Cardiac Surgery - stents x 2, Hx Coronary Artery Bypass Graft, Hx Coronary Stent - X 2, Hx Open Heart Surgery - 2003 STENTS, Hx Orthopedic Surgery. Denies: Hx Pacemaker Physical Exam - Vital signs Vitals: Temp Pulse Resp BP Pulse Ox 99.8 F 76 16 116/52 L 92 05/07/20 14:03 05/07/20 14:03 05/07/20 14:03 05/07/20 14:03 05/07/20 14:03 - Respiratory Respiratory status: Labored Breath sounds: Decreased air movement, Productive cough Course - Re-evaluation Re-evalutation: I have greeted and performed a rapid initial assessment of this patient. A comprehensive ED assessment and evaluation of the patient, analysis of test results and completion of medical decision making process will be conducted by an additional ED providers. - Vital Signs Vital signs: Temp Pulse Resp BP Pulse Ox 99.8 F 76 16 116/52 L 92 05/07/20 14:03 05/07/20 14:03 05/07/20 14:03 05/07/20 14:03 05/07/20 14:03 Doctor's Discharge - Discharge Referrals: TAMMY CHRISTIAN MD [Primary Care Provider] - Follow up as needed
--- NOTE | 2020-05-07 16:12 | RADIOLOGY REPORT (SQ) ---
EXAM DESCRIPTION: CHEST SINGLE VIEW IMAGES COMPLETED DATE/TIME: 05/07/2020 3:57 pm REASON FOR STUDY: shortness of breath COMPARISON: PA and lateral views of the chest from 09/17/2019. EXAM PARAMETERS: NUMBER OF VIEWS: One view. TECHNIQUE: An AP view of the chest was obtained. RADIATION DOSE: NA LIMITATIONS: None. FINDINGS: LUNGS AND PLEURA: Patchy bilateral parenchymal opacities in a peripheral distribution. Th e costophrenic sulci are blunted. There is no pneumothorax. MEDIASTINUM AND HILAR STRUCTURES: No mediastinal or hilar contour abnormality. HEART AND VASCULAR STRUCTURES: The cardiac silhouette and pulmonary vasculature are within normal sr its. BONES: No acute findings. HARDWARE: Intact left subclavian vein approach ICD. OTHER: No other finding. IMPRESSION: Patchy bilateral parenchymal opacities in a peripheral distribution. Correlation with c linical findings to exclude a pneumonia (including atypical infections such as COVID-19) is recommend ed. TECHNICAL DOCUMENTATION: JOB ID: [id number] [employer]- All Rights Reserved Reading location - IP/workstation name: [email or web address]
[2020-05-07] MEDS ORDERED: AZITHROMYCIN 250 MG TABLET PO ONE (17:12)
[2020-05-07] MEDS ORDERED: CEFTRIAXONE 2 GM/D5W RTU 2 GM/50 ML RTUPB IV ONE (17:12)
--- NOTE | 2020-05-07 17:20 | ER Document Report ---
ED General - General Chief Complaint: Congestion Stated Complaint: DIFFICULTY BREATHING, TIGHTNESS OF CHEST Time Seen by Provider: 05/07/20 15:36 Primary Care Provider: TAMMY CHRISTIAN MD [COMMUNITY BASED STAFF] - Follow up as needed Information source: Patient TRAVEL OUTSIDE OF THE [place] IN LAST 30 DAYS: No - HPI Notes: Patient presents complaint of shortness of breath. He states he says shortness of breath for approximately 4 days. He states is been getting progressively worse. He states he has a history of asthma and has had several heart attacks. He states he always has some underlying shortness of breath but has been getting worse over the last 4 days. He denies any pain. He has had somewhat of a dry cough. No fevers. He denies any known exposure to the Covid virus. He has had no vomiting. He states he has chronic diarrhea but is not noticed any new change in this. - Related Data Allergies/Adverse Reactions: mri dye Allergy (Uncoded 09/17/19 18:49) Past Medical History - General Information source: Patient - Social History Smoking Status: Former Smoker Frequency of alcohol use: None Drug Abuse: None Family History: Reviewed & Not Pertinent, CAD, DM, Hypertension, Malignancy - Past Medical History Cardiac Medical History: Reports: Hx Coronary Artery Disease, Hx Heart Attack, Hx Hypercholesterolemia, Hx Hypertension Pulmonary Medical History: Reports: Hx Asthma, Hx Bronchitis, Hx COPD Neurological Medical History: Denies: Hx Cerebrovascular Accident, Hx Seizures Endocrine Medical History: Reports: Hx Diabetes Mellitus Type 2. Denies: Hx Diabetes Mellitus Type 1, Hx Hyperthyroidism, Hx Hypothyroidism Renal/ Medical History: Denies: Hx Peritoneal Dialysis GI Medical History: Denies: Hx Cirrhosis, Hx Crohn's Disease, Hx Hepatitis, Hx Hiatal Hernia, Hx Ulcer, Hx Ulcerative Colitis Musculoskeletal Medical History: Reports Hx Arthritis, Denies Hx Gout Skin Medical History: Denies Hx Eczema, Denies Hx Psoriasis Infectious Medical History: Denies: Hx Hepatitis Past Surgical History: Reports: Hx Cardiac Catheterization, Hx Cardiac Surgery - stents x 2, Hx Coronary Artery Bypass Graft, Hx Coronary Stent - X 2, Hx Open Heart Surgery - 2003 STENTS, Hx Orthopedic Surgery. Denies: Hx Pacemaker Review of Systems - Review of Systems Constitutional: Malaise, Weakness. denies: Chills, Fever Cardiovascular: denies: Chest pain, Palpitations Respiratory: Cough, Short of breath -: Yes All other systems reviewed and negative Physical Exam - Vital signs Vitals: Temp Pulse Resp BP Pulse Ox 99.8 F 76 16 116/52 L 92 05/07/20 14:03 05/07/20 14:03 05/07/20 14:03 05/07/20 14:03 05/07/20 14:03 Interpretation: Hypoxic - General General appearance: Appears well, Alert In distress: Mild - HEENT Head: Normocephalic, Atraumatic Eyes: Normal Pupils: PERRL - Respiratory Respiratory status: Respiratory distress - mild Chest status: Nontender Breath sounds: Decreased air movement, Rhonchi Chest palpation: Normal - Cardiovascular Rhythm: Regular Heart sounds: Normal auscultation Murmur: No - Abdominal Inspection: Normal Distension: No distension Bowel sounds: Normal Tenderness: Nontender Organomegaly: No organomegaly - Back Back: Normal, Nontender - Extremities General upper extremity: Normal inspection, Nontender, Normal color, Normal ROM, Normal temperature General lower extremity: Normal inspection, Nontender, Edema - 2+ bilat, Normal color, Normal ROM, Normal temperature. No: Luis Armando's sign - Neurological Neuro grossly intact: Yes Cognition: Normal Orientation: AAOx4 [place] Coma Scale Eye Opening: Spontaneous Jorge Coma Scale Verbal: Oriented Jorge Coma Scale Motor: Obeys Commands Jorge Coma Scale Total: 15 Speech: Normal Motor strength normal: LUE, RUE, LLE, RLE Sensory: Normal - Psychological Associated symptoms: Normal affect, Normal mood - Skin Skin Temperature: Warm Skin Moisture: Dry Skin Color: Normal Course - Re-evaluation Re-evalutation: 05/07/20 17:19 Patient presents with a history of asthma and complaint of progressive shortness of breath. Oxygen saturation was resting 85% on room air. Chest x-ray is worrisome for viral pneumonia and possible Covid virus infection. Patient declines any knowledge of being exposed to the Covid virus. At this time Covid test is pending. pt has mildly elevated potassium. Will give one dose of kayexelate. 05/07/20 18:03 - Vital Signs Vital signs: Temp Pulse Resp BP Pulse Ox 99.8 F 76 16 116/52 L 92 05/07/20 14:03 05/07/20 14:03 05/07/20 14:03 05/07/20 14:03 05/07/20 14:03 - Laboratory Results Result Diagrams: 05/07/20 17:01 05/07/20 17:01 Laboratory Results Interpreted: 05/07/20 05/07/20 17:01 17:01 WBC 10.7 H RDW 15.8 H Lymph % (Auto) 8.4 L Absolute Neuts (auto) 8.7 H Seg Neutrophils % 81.7 H Sodium 132.2 L Potassium 5.4 H BUN 25 H Glucose 134 H AST 100 H ALT 92 H Critical Laboratory Results Reviewed: No Critical Results - Radiology Results Critical Radiology Results Reviewed: Yes Attending or Supervising Physician who Reviewed Radiology: LATASHA TALLEY - EKG Interpretation by Co EKG shows normal: Sinus rhythm Rate: Normal - 72 Rhythm: NSR Surprise/QRS: RBBB Discharge - Discharge Clinical Impression: Pneumonia due to COVID-19 virus, Hyperkalemia Condition: Serious Disposition: ADMITTED INPATIENT Admitting Provider: Alyson (Hospitalist) Unit Admitted: IMCU Referrals: TAMMY CHRISTIAN MD [COMMUNITY BASED STAFF] - Follow up as needed
[2020-05-07 17:30] LABS: ABSOLUTE BASOPHILS # (AUTO) 0.1 10^3/uL (0.0-0.2); ABSOLUTE LYMPHOCYTES (AUTO) 0.9 10^3/uL (0.5-4.7); ABSOLUTE MONOCYTES (AUTO) 0.9 10^3/uL (0.1-1.4); ABSOLUTE NEUT (AUTO) 8.7 10^3/uL (1.7-8.2); EOSINOPHILS % (AUTO) 0.2 % (0-6); HEMOGLOBIN 14.1 g/dL (13.5-17.0); LYMPHOCYTES % (AUTO) 8.4 % (13-45); MEAN CORPUSCULAR HEMOGLOBIN 27.6 pg (27.0-33.4); MEAN CORPUSCULAR HGB CONC 34.3 g/dL (32.0-36.0); MEAN CORPUSCULAR VOLUME 81 fl (80-97); MONOCYTES % (AUTO) 8.7 % (3-13); PLATELET COUNT 220 10^3/uL (150-450); RED BLOOD COUNT 5.08 10^6/uL (4.35-5.55); RED CELL DISTRIBUTION WIDTH 15.8 % (11.5-14.0); SEGMENTED NEUTROPHILS % (AUTO) 81.7 % (42-78); TOTAL CELLS COUNTED % (AUTO) 100 %; WHITE BLOOD COUNT 10.7 10^3/uL (4.0-10.5)
[2020-05-07 17:49] LABS: ALBUMIN 3.7 g/dL (3.5-5.0); ALKALINE PHOSPHATASE 48 U/L (38-126); ANION GAP 5 (5-19); ASPARTATE AMINO TRANSFERASE 100 U/L (17-59); BILIRUBIN,DIRECT 0.3 mg/dL (0.0-0.4); BLOOD UREA NITROGEN 25 mg/dL (7-20); CALCIUM 8.9 mg/dL (8.4-10.2); CARBON DIOXIDE 26 mmol/L (22-30); CHLORIDE 101 mmol/L (98-107); GLUCOSE 134 mg/dL (75-110); POTASSIUM 5.4 mmol/L (3.6-5.0); TOTAL PROTEIN 6.4 g/dL (6.3-8.2)
[2020-05-07] MEDS ORDERED: SODIUM POLYSTYRENE SULFONATE 15 GM/60 ML PO ONE (18:04)
[2020-05-07] MEDS ORDERED: PROMETHAZINE HCL 25 MG SUPP.RECT PR PRN (18:10)
[2020-05-07] MEDS ORDERED: PROMETHAZINE HCL 25 MG TABLET PO PRN (18:10)
[2020-05-07] MEDS ORDERED: MAG HYDROX/AL HYDROX/SIMETH SUSP 30 ML UDCUP PO PRN (18:10)
[2020-05-07] MEDS ORDERED: TEMAZEPAM 7.5 MG CAPSULE PO PRN (18:10)
[2020-05-07] MEDS ORDERED: MAGNESIUM HYDROXIDE SUSP 30 ML UDCUP PO PRN (18:10)
[2020-05-07] MEDS ORDERED: OXYCODONE-ACETAMINOPHEN 5-325 MG TABLET PO PRN (18:10)
[2020-05-07] MEDS ORDERED: ONDANSETRON HCL INJ/PF 4 MG/2 ML SDV IV PRN (18:10)
[2020-05-07] MEDS ORDERED: PROMETHAZINE HCL INJ 25 MG/1 ML VIAL IV PRN (18:10)
[2020-05-07] MEDS ORDERED: ONDANSETRON 4 MG TAB.RAPDIS PO PRN (18:10)
[2020-05-07] MEDS ORDERED: ACETAMINOPHEN 325 MG TABLET PO PRN (18:10)
[2020-05-07] MEDS ORDERED: IPRATROPIUM/ALBUTEROL 0.5-2.5 MG/3 ML AMPUL NEB PRN (18:10)
--- NOTE | 2020-05-07 18:10 | PDOC H&P ---
History of Present Illness Admission Date/PCP: SERGEY MANCUSO History of Present Illness: EHLIO RODRIGUEZ is a 70 year old male with past medical history of CAD status post stent placement and defibrillator placement, hypertension, diabetes, presenting to ED complaining of 1 week of worsening shortness of breath, fatigue, loss of smell, loss of taste, excessive sleepiness, and worsening chronic diarrhea. Denies any chest pain, fever, abdominal pain, nausea, vomiting, any urinary symptoms. In ED he was found to have mild leukocytosis, mildly elevated liver chemistries, hyperkalemia, chest x-ray positive for patchy bilateral parenchymal opacities. Hospitalist consulted for presumptive COVID-19 pneumonia. Pending COVID-19 serology at the time of dictation. Pending troponins. Past Medical History Cardiac Medical History: Reports: Coronary Artery Disease, Myocardial Infarction, Hyperlipidema, Hypertension Pulmonary Medical History: Reports: Asthma, Bronchitis, Chronic Obstructive Pulmonary Disease (COPD) Neurological Medical History: Denies: Seizures Endocrine Medical History: Reports: Diabetes Mellitus Type 2 Denies: Diabetes Mellitus Type 1, Hyperthyroidism, Hypothyroidism GI Medical History: Denies: Cirrhosis, Crohn's Disease, Hepatitis, Hiatal Hernia, Ulcerative Colitis Musculoskeltal Medical History: Reports: Arthritis Denies: Gout Skin Medical History: Denies: Eczema, Psoriasis Hematology: Denies: Anemia, Sickle Cell Disease, Bleeding Tendencies Past Surgical History Past Surgical History: Reports: Cardiac Catheterization, Coronary Artery Bypass Graft, Coronary Stent - X 2, Orthopedic Surgery Denies: Pacemaker Social History Smoking Status: Former Smoker Frequency of Alcohol Use: Occasional Hx Recreational Drug Use: No Drugs: None Hx Prescription Drug Abuse: No Family History Family History: Reviewed & Not Pertinent, CAD, DM, Hypertension, Malignancy Parental Family History Reviewed: Yes Children Family History Reviewed: Yes Sibling(s) Family History Reviewed.: Yes Medication/Allergy Home Medications: Albuterol Sulfate [Proair HFA Inhalation Aerosol 8.5 gm MDI] 2 puff IH Q4 02/13 Atorvastatin Calcium [Lipitor 20 mg Tablet] 20 mg PO DAILY 02/13/19 Budesonide/Formoterol Fumarate [Symbicort HFA 160-4.5 mcg Inhaler 6 gm] 2 puff IH Q12 02/13/19 Fenofibrate 54mg 54 mg PO QAM 02/13/19 Hydrocodone Bit/Acetaminophen [Hydrocodon-Acetaminophn 10-325] 1 tab PO Q6HP PRN 02/13/19 Ibuprofen [Motrin 800 mg Tablet] 800 mg PO Q8HP PRN 02/13/19 Lisinopril [Prinivil] 20 mg PO DAILY 02/13/19 Metoprolol Succinate [Toprol Xl 25 mg Tab.sr] 25 mg PO DAILY 02/13/19 Glimepiride 1 mg PO DAILY #30 tablet 02/16/19 Levofloxacin [Levaquin 500 mg Tablet] 500 mg PO DAILY 5 Days #5 tablet 02/16/19 Cephalexin Monohydrate [Keflex 500 mg Capsule] 500 mg PO BID 7 Days #14 capsule 09/18/19 Allergies/Adverse Reactions: mri dye Allergy (Uncoded 09/17/19 18:49) Review of Systems Review of Systems: as per hpi Physical Exam Vital Signs: Temp Pulse Resp BP Pulse Ox 99.8 F 76 16 116/52 L 92 05/07/20 14:03 05/07/20 14:03 05/07/20 14:03 05/07/20 14:03 05/07/20 14:03 General appearance: PRESENT: no acute distress, well-developed, well-nourished Head exam: PRESENT: atraumatic, normocephalic Respiratory exam: PRESENT: clear to auscultation arsenio. ABSENT: rales, rhonchi, wheezes Cardiovascular exam: PRESENT: RRR. ABSENT: diastolic murmur, rubs, systolic murmur GI/Abdominal exam: PRESENT: normal bowel sounds, soft. ABSENT: distended, guarding, mass, organolmegaly, rebound, tenderness Neurological exam: PRESENT: alert, awake, oriented to person, oriented to place, oriented to time, oriented to situation, CN II-XII grossly intact. ABSENT: motor sensory deficit Skin exam: PRESENT: dry, intact, warm. ABSENT: cyanosis, rash Results Laboratory Results: 05/07/20 17:01 05/07/20 17:05/07/20 05/07/20 17: 17:01 WBC 10.7 H RBC 5.08 Hgb 14.1 Hct 41.0 MCV 81 MCH 27.6 MCHC 34.3 RDW 15.8 H Plt Count 220 Seg Neutrophils % 81.7 H Sodium 132.2 L Potassium 5.4 H Chloride 101 Carbon Dioxide 26 Anion Gap 5 BUN 25 H Creatinine 1.00 Est GFR ( Amer) > 60 Glucose 134 H Calcium 8.9 Total Bilirubin 1.0 AST 100 H Alkaline Phosphatase 48 Total Protein 6.4 Albumin 3.7 05/07/20 17:01 Troponin I < 0.012 Impressions: Chest X-Ray 05/07/20 15:47 IMPRESSION: Patchy bilateral parenchymal opacities in a peripheral distribution. Correlation with clinical findings to exclude a pneumonia (including atypical infections such as COVID-19) is recommended. Assessment and Plan - Diagnosis (1) Acute respiratory failure with hypoxia Is this a current diagnosis for this admission?: Yes Plan: Presenting with worsening shortness of breath, mild leukocytosis. Chest x-ray positive for patchy infiltrates, COVID-19 is a possibility. Admit telemetry, empiric IV antibiotics, supplemental oxygen, DuoNeb, steroids, flutter valve, incentive spirometry, pulmonary toileting. (2) COPD (chronic obstructive pulmonary disease) Is this a current diagnosis for this admission?: Yes Plan: History of nonoxygen dependent COPD. Does not appear to be acutely exacerbated. Continue LAMA, LABA, ICS. As needed DuoNebs. (3) Diabetes mellitus type 2 in obese Is this a current diagnosis for this admission?: Yes Plan: Diabetic diet, sliding scale insulin, Accu-Chek, hypoglycemia protocol. Resume home meds upon discharge. Obtain hemoglobin A1c. (4) HLD (hyperlipidemia) Qualifiers: Is this a current diagnosis for this admission?: Yes Plan: Resume statins. (5) HTN (hypertension) Qualifiers: Is this a current diagnosis for this admission?: Yes Plan: Euvolemic. Normotensive. Resume home meds. Adjust meds as needed (6) ILIR (obstructive sleep apnea) Is this a current diagnosis for this admission?: Yes Plan: Nocturnal CPAP. (7) Hyperkalemia Is this a current diagnosis for this admission?: Yes Plan: Hyperkalemia protocol. (8) CAD (coronary artery disease) Is this a current diagnosis for this admission?: Yes Plan: Denies any anginal symptoms. Resume home meds. - Time Time Spent with patient: 35 or more minutes Anticipated Discharge Disposition: Home, Self Care Anticipated Discharge Timeframe: within 72 hours
--- NOTE | 2020-05-07 18:10 | EKG REPORT ---
SEVERITY:- ABNORMAL ECG - SINUS RHYTHM VENTRICULAR PREMATURE COMPLEX RIGHT BUNDLE BRANCH BLOCK INFERIOR INFARCT:OLD : Confirmed by: Brittney Cameron MD 07-May-2020 18:10:29
[2020-05-07] MEDS ORDERED: NITROGLYCERIN 0.4 MG/TAB 25 TAB/BOTTLE SL PRN (18:17)
[2020-05-07] MEDS ORDERED: GLUCAGON,HUMAN RECOMB 1 MG INJ IM PRN (18:19)
[2020-05-07] MEDS ORDERED: DEXTROSE 50%-WATER 25 GM/50 ML DISP.SYRIN IV PRN ×2 (18:19)
[2020-05-07] MEDS ORDERED: DEXTROSE 40% GEL 15 GM TUBE PO PRN ×2 (18:19)
[2020-05-07] MEDS ORDERED: CALCIUM GLUCONATE 1000 MG/10 ML INJ IV ONE (18:22)
[2020-05-07] MEDS ORDERED: ALBUTEROL SULFATE 0.042% NEB (1.25 MG/3 ML) AMPUL NEB ONE (18:30)
[2020-05-07 18:42] LABS: INTERNATIONAL RATION (INR) 1.06
[2020-05-07 18:43] LABS: FIBRINOGEN 718 mg/dL (209-497); PARTIAL THROMBOPLASTIN TIME 31.3 SEC (23.5-35.8)
[2020-05-07 18:45] LABS: D-DIMER 1.37 ug/mL (0.00-0.50)
[2020-05-07] MEDS ORDERED: SODIUM POLYSTYRENE SULFONATE 15 GM/60 ML ONE (20:12)
[2020-05-07] MEDS: DEXAMETHASONE SOD PHOS INJ 10 MG/1 ML VIAL IV SCH (20:17)
[2020-05-07] MEDS: SOTALOL HCL 80 MG TABLET PO SCH (22:37)
[2020-05-07] MEDS: FAMOTIDINE 20 MG TABLET PO SCH (22:37)
[2020-05-07] MEDS: ATORVASTATIN CALCIUM 40 MG TABLET PO SCH (22:37)
[2020-05-07] MEDS: INSULIN LISPRO 100 UNIT/ML 3 ML VIAL SUBCUT SCH (22:37)
[2020-05-08 05:36] LABS: ABSOLUTE BASOPHILS # (AUTO) 0.1 10^3/uL (0.0-0.2); ABSOLUTE LYMPHOCYTES (AUTO) 0.6 10^3/uL (0.5-4.7); ABSOLUTE MONOCYTES (AUTO) 0.4 10^3/uL (0.1-1.4); ABSOLUTE NEUT (AUTO) 7.4 10^3/uL (1.7-8.2); BASOPHILS % (AUTO) 0.7 % (0-2); HEMATOCRIT 39.1 % (37.9-51.0); HEMOGLOBIN 13.6 g/dL (13.5-17.0); LYMPHOCYTES % (AUTO) 7.2 % (13-45); MEAN CORPUSCULAR HEMOGLOBIN 28.2 pg (27.0-33.4); MEAN CORPUSCULAR HGB CONC 34.7 g/dL (32.0-36.0); MEAN CORPUSCULAR VOLUME 81 fl (80-97); MONOCYTES % (AUTO) 5.3 % (3-13); PLATELET COUNT 212 10^3/uL (150-450); RED BLOOD COUNT 4.81 10^6/uL (4.35-5.55); RED CELL DISTRIBUTION WIDTH 15.4 % (11.5-14.0); SEGMENTED NEUTROPHILS % (AUTO) 86.8 % (42-78); TOTAL CELLS COUNTED % (AUTO) 100 %; WHITE BLOOD COUNT 8.5 10^3/uL (4.0-10.5)
[2020-05-08 05:59] LABS: ALBUMIN 3.6 g/dL (3.5-5.0); ALKALINE PHOSPHATASE 50 U/L (38-126); ANION GAP 10 (5-19); ASPARTATE AMINO TRANSFERASE 113 U/L (17-59); BILIRUBIN,DIRECT 0.2 mg/dL (0.0-0.4); BILIRUBIN,TOTAL 0.7 mg/dL (0.2-1.3); BLOOD UREA NITROGEN 27 mg/dL (7-20); CALCIUM 9.2 mg/dL (8.4-10.2); CARBON DIOXIDE 25 mmol/L (22-30); CHLORIDE 101 mmol/L (98-107); GLUCOSE 194 mg/dL (75-110); POTASSIUM 4.6 mmol/L (3.6-5.0); TOTAL PROTEIN 6.1 g/dL (6.3-8.2)
[2020-05-08 06:43] LABS: C-REACTIVE PROTEIN 210.8 mg/L (<10.0)
[2020-05-08] MEDS: INSULIN LISPRO 100 UNIT/ML 3 ML VIAL SUBCUT SCH ×4 (08:15→21:13)
[2020-05-08] MEDS ORDERED: NORMAL SALINE 1000 ML 1,000 ML IV ONE (08:47)
[2020-05-08] MEDS ORDERED: ALBUTEROL SULFATE HFA (90 MCG/PUFF) 8 GM MDI (1 MDI/ER DISP) IH SCH (09:00)
[2020-05-08] MEDS ORDERED: AZITHROMYCIN 250 MG TABLET PO SCH (10:00)
[2020-05-08] MEDS ORDERED: FENOFIBRATE NANOCRYSTALLIZED 145 MG TABLET PO SCH (10:00)
[2020-05-08] MEDS ORDERED: LISINOPRIL 10 MG TABLET PO SCH (10:00)
[2020-05-08] MEDS ORDERED: ENOXAPARIN SODIUM INJ 40 MG/0.4 ML DISP.SYRIN SUBCUT SCH ×2 (10:00→22:00)
[2020-05-08] MEDS: CHOLECALCIFEROL (D3) 1,000 UNIT (25 MCG) TABLET PO SCH (10:08)
[2020-05-08] MEDS: DOCUSATE SODIUM 100 MG CAPSULE PO SCH (10:08)
[2020-05-08] MEDS: FAMOTIDINE 20 MG TABLET PO SCH ×2 (10:09→21:11)
[2020-05-08] MEDS: ASPIRIN 81 MG TABLET, ENT COATED PO SCH (10:09)
[2020-05-08] MEDS: ASCORBIC ACID 500 MG TABLET PO SCH ×2 (10:09→17:21)
[2020-05-08] MEDS: SOTALOL HCL 80 MG TABLET PO SCH ×2 (10:09→21:11)
[2020-05-08] MEDS: ZINC SULFATE 220 MG CAPSULE PO SCH (10:09)
[2020-05-08] MEDS: DEXAMETHASONE SOD PHOS INJ 10 MG/1 ML VIAL IV SCH (10:09)
[2020-05-08] MEDS: ALBUTEROL SULFATE HFA (90 MCG/PUFF) 8 GM MDI IH SCH ×2 (14:00→17:27)
--- NOTE | 2020-05-08 14:03 | PDOC PROGRESS REPORT ---
Subjective Date:: 05/08/20 Subjective:: Patient today still having shortness of breath but feels a little bit better than yesterday. He denies any chest pains anywhere. He is on 2 L nasal cannula. I did take off his nasal cannula monitor him and he briefly desaturated to 87% but then bounced back up to around 90% and holding. He denies any history of profound GI bleeds but does endorse that he has history of hemorrhoids which occasionally show little specs when constipated. Denies any history of blood transfusions. States his symptoms have been going on for a week and 1/2 to 2 weeks. Reason For Visit: ACUTE RESPIRATORY FAILURE WITH HYPOXIA, PNEUMONIA Physical Exam Vital Signs: Temp Pulse Resp BP Pulse Ox 97.9 F 63 20 83/39 L 96 05/08/20 07:00 05/08/20 07:00 05/08/20 07:00 05/08/20 07:00 05/08/20 08:57 Intake & Output 05/07/20 05/08/20 05/09/20 06:59 06:59 06:59 Intake Total 357 480 Balance 357 480 Weight 113.1 kg General appearance: PRESENT: no acute distress, cooperative Neck exam: ABSENT: JVD Respiratory exam: PRESENT: crackles - lung bases, symmetrical, unlabored. ABSENT: accessory muscle use, retraction, tachypnea, wheezes Cardiovascular exam: PRESENT: RRR, +S1, +S2. ABSENT: tachycardia GI/Abdominal exam: PRESENT: soft. ABSENT: rebound, rigid, tenderness Neurological exam: PRESENT: alert, awake, oriented to person, oriented to place, oriented to time, oriented to situation Results Laboratory Results: 05/08/20 04:57 05/08/20 04:57 05/07/20 05/07/20 05/07/20 17:01 17:01 18:50 WBC 10.7 H RBC 5.08 Hgb 14.1 Hct 41.0 MCV 81 MCH 27.6 MCHC 34.3 RDW 15.8 H Plt Count 220 Seg Neutrophils % 81.7 H Sodium 132.2 L Potassium 5.4 H Chloride 101 Carbon Dioxide 26 Anion Gap 5 BUN 25 H Creatinine 1.00 Est GFR ( Amer) > 60 Glucose 134 H Calcium 8.9 Ferritin Total Bilirubin 1.0 AST 100 H Alkaline Phosphatase 48 C-Reactive Protein Total Protein 6.4 Albumin 3.7 Blood Type A POSITIVE 05/08/20 05/08/20 04:57 04:57 WBC 8.5 RBC 4.81 Hgb 13.6 Hct 39.1 MCV 81 MCH 28.2 MCHC 34.7 RDW 15.4 H Plt Count 212 Seg Neutrophils % 86.8 H Sodium 135.9 L Potassium 4.6 Chloride 101 Carbon Dioxide 25 Anion Gap 10 BUN 27 H Creatinine 0.97 Est GFR ( Amer) > 60 Glucose 194 H Calcium 9.2 Ferritin 763.00 H Total Bilirubin 0.7 AST 113 H Alkaline Phosphatase 50 C-Reactive Protein 210.8 H Total Protein 6.1 L Albumin 3.6 Blood Type 05/07/20 17:01 Troponin I < 0.012 Impressions: Chest X-Ray 05/07/20 15:47 IMPRESSION: Patchy bilateral parenchymal opacities in a peripheral distribution. Correlation with clinical findings to exclude a pneumonia (including atypical infections such as COVID-19) is recommended. Assessment and Plan - Diagnosis (1) Pneumonia due to COVID-19 virus Is this a current diagnosis for this admission?: Yes Plan: Started on ivermectin today. Out of window for remdesivir Dexamethasone Multivitamins and zinc supplements D-dimer is quite high so placed on therapeutic Lovenox and obtain CTA of the chest (2) Acute respiratory failure with hypoxia Is this a current diagnosis for this admission?: Yes Plan: On 2 L today. We will try to monitor him on room air and see how he does. (3) CAD (coronary artery disease) Is this a current diagnosis for this admission?: Yes Plan: Denies any anginal symptoms. C/w home meds (4) COPD (chronic obstructive pulmonary disease) Is this a current diagnosis for this admission?: Yes Plan: Not in acute exacerbation. Inhalers as needed, Breo. (5) Diabetes mellitus type 2 in obese Is this a current diagnosis for this admission?: Yes Plan: Sliding scale insulin. Hold Metformin given contrast study that is planned. (6) Hyperkalemia Is this a current diagnosis for this admission?: Yes Plan: Resolved. Status post Kayexalate yesterday. (7) HTN (hypertension) Qualifiers: Is this a current diagnosis for this admission?: Yes Plan: Lisinopril is on hold due to soft blood pressures this morning. Also was hyperkalemic yesterday. (8) ILIR (obstructive sleep apnea) Is this a current diagnosis for this admission?: Yes Plan: Nocturnal CPAP - Time Time Spent with patient: 15-24 minutes Anticipated Discharge Disposition: Home, Self Care Anticipated Discharge Timeframe: within 24 hours
[2020-05-08] MEDS: IVERMECTIN 3 MG TABLET PO SCH (17:24)
[2020-05-08] MEDS: FLUTICASONE/VILANTEROL 100-25 MCG/DOSE IH SCH (17:32)
--- NOTE | 2020-05-08 17:38 | RADIOLOGY REPORT (SQ) ---
EXAM DESCRIPTION: CTA CHEST IMAGES COMPLETED DATE/TIME: 05/08/2020 4:58 pm REASON FOR STUDY: sob, covid, r/o PE COMPARISON: None. TECHNIQUE: CT scan of the chest performed using helical scanning technique with dynamic intravenous contrast injection. Images reviewed with lung, soft tissue and bone windows. Reconstructed coronal and sagittal MPR images reviewed. Additional 3 dimensional post-processing performed to develop Maximal Intensity Projection images (SD P). All images stored on PACS. All CT scanners at this facility use dose modulation, iterative reconstruction, and/or weight based d osing when appropriate to reduce radiation dose to as low as reasonably achievable (ALARA). [facility]: Dose Right [facility]: CareDose [facility]: Dose Right [facility]: Teradose 4D [facility]: The Scene CONTRAST TYPE AND DOSE: contrast/concentration: Isovue 350.00 mmol/ml; Total Contrast Delivered: 71. 0 ml; Total Saline Delivered: 72.0 ml Contrast bolus adequate for pulmonary arteries and aorta. RENAL FUNCTION: Not recorded here. Refer to patient's chart. RADIATION DOSE: CT Rad equipment meets quality standard of care and radiation dose reduction techniq ues were employed. CTDIvol: 26.4 - 31.4 mGy. DLP: 1198 mGy-cm. . LIMITATIONS: None. FINDINGS: LUNGS AND PLEURA: Extensive ground-glass infiltrates bilaterally. These are generally per ipheral in location. No focal consolidation. No pleural effusion. AORTA AND GREAT VESSELS: No aneurysm. No dissection. HEART: No pericardial effusion. Moderate to marked coronary artery calcifications. PULMONARY ARTERIES: No emboli visualized in the main pulmonary arteries or the segmental branches. HILAR AND MEDIASTINAL STRUCTURES: No identified masses or abnormal nodes. HARDWARE: Pacemaker/defibrillator. UPPER ABDOMEN: Multiple gallstones. THYROID AND OTHER SOFT TISSUES: No masses. No adenopathy. BONES: No acute or significant finding. 3D MIPS: Confirm above findings. OTHER: No other significant finding. IMPRESSION: 1. There is no pulmonary embolus. There is no aortic aneurysm or dissection. 2. There are extensive ground-glass infiltrates consistent with the history of COVID-19 pneumonia. COMMENT: Quality ID # [id number]: Final reports with documentation of one or more dose reduction techniques (e.g., Automated exposure control, adjustment of the mA and/or kV according to patient size, use of iterative reconstruction technique) TECHNICAL DOCUMENTATION: JOB ID: [id number] All Rights Reserved Reading location - IP/workstation name: [email or web address]
[2020-05-08] MEDS: ENOXAPARIN SODIUM INJ 100 MG/1 ML DISP.SYRIN SUBCUT SCH (21:11)
[2020-05-08] MEDS: ATORVASTATIN CALCIUM 40 MG TABLET PO SCH (21:11)
[2020-05-09] MEDS: ALBUTEROL SULFATE HFA (90 MCG/PUFF) 8 GM MDI IH SCH ×5 (00:25→23:24)
[2020-05-09 05:02] LABS: HEMATOCRIT 39.7 % (37.9-51.0); HEMOGLOBIN 13.3 g/dL (13.5-17.0); MEAN CORPUSCULAR HEMOGLOBIN 27.4 pg (27.0-33.4); MEAN CORPUSCULAR HGB CONC 33.6 g/dL (32.0-36.0); MEAN CORPUSCULAR VOLUME 82 fl (80-97); PLATELET COUNT 257 10^3/uL (150-450); RED BLOOD COUNT 4.86 10^6/uL (4.35-5.55); RED CELL DISTRIBUTION WIDTH 15.8 % (11.5-14.0)
[2020-05-09 05:15] LABS: WHITE BLOOD COUNT 17.3 10^3/uL (4.0-10.5)
[2020-05-09 05:33] LABS: ALBUMIN 3.3 g/dL (3.5-5.0); ALKALINE PHOSPHATASE 50 U/L (38-126); ANION GAP 9 (5-19); ASPARTATE AMINO TRANSFERASE 139 U/L (17-59); BILIRUBIN,DIRECT 0.2 mg/dL (0.0-0.4); BILIRUBIN,TOTAL 0.4 mg/dL (0.2-1.3); BLOOD UREA NITROGEN 33 mg/dL (7-20); C-REACTIVE PROTEIN 68.3 mg/L (<10.0); CALCIUM 8.7 mg/dL (8.4-10.2); CARBON DIOXIDE 23 mmol/L (22-30); CHLORIDE 103 mmol/L (98-107); GLUCOSE 161 mg/dL (75-110); POTASSIUM 4.4 mmol/L (3.6-5.0); TOTAL PROTEIN 5.9 g/dL (6.3-8.2)
[2020-05-09 05:40] LABS: ABSOLUTE LYMPHOCYTES# (MANUAL) 0.7 10^3/uL (0.5-4.7); ABSOLUTE MONOCYTES # (MANUAL) 1.2 10^3/uL (0.1-1.4); ANISOCYTOSIS 1+; BASOPHILS % (MANUAL) 0 % (0-2); EOSINOPHILS % (MANUAL) 0 % (0-6); LYMPHOCYTES % (MANUAL) 4 % (13-45); MONOCYTES % (MANUAL) 7 % (3-13); PLATELET COMMENT ADEQUATE; SEGMENTED NEUTROPHILS % (MAN) 89 % (42-78); TOTAL CELLS COUNTED 100
[2020-05-09] MEDS: INSULIN LISPRO 100 UNIT/ML 3 ML VIAL SUBCUT SCH ×4 (08:11→22:13)
[2020-05-09] MEDS: FLUTICASONE/VILANTEROL 100-25 MCG/DOSE IH SCH (10:00)
[2020-05-09] MEDS: ASCORBIC ACID 500 MG TABLET PO SCH ×2 (10:54→17:36)
[2020-05-09] MEDS: DEXAMETHASONE SOD PHOS INJ 10 MG/1 ML VIAL IV SCH (10:54)
[2020-05-09] MEDS: DOCUSATE SODIUM 100 MG CAPSULE PO SCH (10:55)
[2020-05-09] MEDS: SOTALOL HCL 80 MG TABLET PO SCH ×2 (10:55→22:16)
[2020-05-09] MEDS: FAMOTIDINE 20 MG TABLET PO SCH ×2 (10:55→22:15)
[2020-05-09] MEDS: CHOLECALCIFEROL (D3) 1,000 UNIT (25 MCG) TABLET PO SCH (10:55)
[2020-05-09] MEDS: ASPIRIN 81 MG TABLET, ENT COATED PO SCH (10:56)
[2020-05-09] MEDS: ZINC SULFATE 220 MG CAPSULE PO SCH (10:57)
[2020-05-09] MEDS: ENOXAPARIN SODIUM INJ 100 MG/1 ML DISP.SYRIN SUBCUT SCH ×2 (11:02→22:14)
--- NOTE | 2020-05-09 17:15 | PDOC PROGRESS REPORT ---
Subjective Date:: 05/09/20 Subjective:: Feeling well just tired Reason For Visit: ACUTE RESPIRATORY FAILURE WITH HYPOXIA, PNEUMONIA Physical Exam Vital Signs: Temp Pulse Resp BP Pulse Ox 99.8 F 76 20 118/66 93 05/09/20 12:21 05/09/20 14:00 05/09/20 12:21 05/09/20 12:21 05/09/20 12:21 Intake & Output 05/08/20 05/09/20 05/10/20 06:59 06:59 06:59 Intake Total 357 1860 Balance 357 1860 Weight 113.1 kg 114.9 kg General appearance: PRESENT: no acute distress, cooperative Neck exam: ABSENT: JVD Respiratory exam: PRESENT: crackles - Mild, symmetrical, unlabored. ABSENT: tachypnea, wheezes Cardiovascular exam: PRESENT: RRR, +S1, +S2. ABSENT: tachycardia GI/Abdominal exam: PRESENT: soft. ABSENT: rebound, rigid, tenderness Musculoskeletal exam: PRESENT: ambulatory Neurological exam: PRESENT: alert, awake, oriented to person, oriented to place, oriented to time, oriented to situation Psychiatric exam: ABSENT: agitated, anxious Focused psych exam: ABSENT: pressured speech Skin exam: ABSENT: jaundice Results Laboratory Results: 05/09/20 04:41 05/09/20 04:41 05/09/20 05/09/20 04:41 04:41 WBC 17.3 H D RBC 4.86 Hgb 13.3 L Hct 39.7 MCV 82 MCH 27.4 MCHC 33.6 RDW 15.8 H Plt Count 257 Seg Neutrophils % Not Reportable Sodium 134.9 L Potassium 4.4 Chloride 103 Carbon Dioxide 23 Anion Gap 9 BUN 33 H Creatinine 0.98 Est GFR ( Amer) > 60 Glucose 161 H Calcium 8.7 Ferritin 899.00 H Total Bilirubin 0.4 AST 139 H Alkaline Phosphatase 50 C-Reactive Protein 68.3 H Total Protein 5.9 L Albumin 3.3 L 05/07/20 17:01 Troponin I < 0.012 Impressions: Chest X-Ray 05/07/20 15:47 IMPRESSION: Patchy bilateral parenchymal opacities in a peripheral distribution. Correlation with clinical findings to exclude a pneumonia (including atypical infections such as COVID-19) is recommended. Chest/Abdomen CTA 05/08/20 00:00 IMPRESSION: 1. There is no pulmonary embolus. There is no aortic aneurysm or dissection. 2. There are extensive ground-glass infiltrates consistent with the history of COVID-19 pneumonia. Assessment and Plan - Diagnosis (1) Pneumonia due to COVID-19 virus Is this a current diagnosis for this admission?: Yes (2) Acute respiratory failure with hypoxia Is this a current diagnosis for this admission?: Yes (3) CAD (coronary artery disease) Is this a current diagnosis for this admission?: Yes (4) COPD (chronic obstructive pulmonary disease) Is this a current diagnosis for this admission?: Yes (5) Diabetes mellitus type 2 in obese Is this a current diagnosis for this admission?: Yes (6) Hyperkalemia Is this a current diagnosis for this admission?: Yes (7) HTN (hypertension) Qualifiers: Is this a current diagnosis for this admission?: Yes (8) ILIR (obstructive sleep apnea) Is this a current diagnosis for this admission?: Yes - Plan Summary Summary: Today he was down to room air. We will try to keep him on room air throughout the day. He is scheduled to receive another dose of ivermectin tomorrow morning. We will continue with the steroids. Monitor pulse oximetry closely. Check ambulatory pulse ox. Check CBC and metabolic panel in the morning. Also monitor inflammatory markers. Seems to have been able to tolerate diet. - Time Time Spent with patient: Less than 15 minutes Anticipated Discharge Disposition: Home, Self Care Anticipated Discharge Timeframe: within 24 hours
[2020-05-09 19:08] LABS: INTERNATIONAL RATION (INR) 1.18; PROTHROMBIN TIME 15.2 SEC (11.4-15.4)
[2020-05-09 19:09] LABS: FIBRINOGEN 667 mg/dL (209-497); PARTIAL THROMBOPLASTIN TIME 35.1 SEC (23.5-35.8)
[2020-05-09 19:11] LABS: D-DIMER 0.79 ug/mL (0.00-0.50)
[2020-05-09] MEDS: ATORVASTATIN CALCIUM 40 MG TABLET PO SCH (22:14)
[2020-05-10 05:13] LABS: ABSOLUTE LYMPHOCYTES (AUTO) 0.8 10^3/uL (0.5-4.7); ABSOLUTE MONOCYTES (AUTO) 1.2 10^3/uL (0.1-1.4); ABSOLUTE NEUT (AUTO) 10.6 10^3/uL (1.7-8.2); BASOPHILS % (AUTO) 0.4 % (0-2); HEMATOCRIT 36.7 % (37.9-51.0); HEMOGLOBIN 12.7 g/dL (13.5-17.0); LYMPHOCYTES % (AUTO) 6.2 % (13-45); MEAN CORPUSCULAR HEMOGLOBIN 28.1 pg (27.0-33.4); MEAN CORPUSCULAR HGB CONC 34.6 g/dL (32.0-36.0); MEAN CORPUSCULAR VOLUME 81 fl (80-97); MONOCYTES % (AUTO) 9.3 % (3-13); PLATELET COUNT 270 10^3/uL (150-450); RED BLOOD COUNT 4.51 10^6/uL (4.35-5.55); RED CELL DISTRIBUTION WIDTH 15.4 % (11.5-14.0); SEGMENTED NEUTROPHILS % (AUTO) 84.1 % (42-78); TOTAL CELLS COUNTED % (AUTO) 100 %; WHITE BLOOD COUNT 12.6 10^3/uL (4.0-10.5)
[2020-05-10 05:33] LABS: ALBUMIN 3.2 g/dL (3.5-5.0); ALKALINE PHOSPHATASE 52 U/L (38-126); ANION GAP 6 (5-19); ASPARTATE AMINO TRANSFERASE 91 U/L (17-59); BILIRUBIN,DIRECT 0.2 mg/dL (0.0-0.4); BILIRUBIN,TOTAL 0.4 mg/dL (0.2-1.3); BLOOD UREA NITROGEN 27 mg/dL (7-20); C-REACTIVE PROTEIN 60.2 mg/L (<10.0); CALCIUM 8.6 mg/dL (8.4-10.2); CARBON DIOXIDE 28 mmol/L (22-30); CHLORIDE 105 mmol/L (98-107); GLUCOSE 129 mg/dL (75-110); POTASSIUM 4.5 mmol/L (3.6-5.0); TOTAL PROTEIN 5.7 g/dL (6.3-8.2)
[2020-05-10] MEDS: ALBUTEROL SULFATE HFA (90 MCG/PUFF) 8 GM MDI IH SCH (06:06)
[2020-05-10] MEDS ORDERED: PROMETHAZINE HCL INJ 25 MG/1 ML VIAL IV PRN (08:00)
[2020-05-10] MEDS ORDERED: ONDANSETRON HCL INJ/PF 4 MG/2 ML SDV IV PRN (08:00)
[2020-05-10] MEDS ORDERED: ONDANSETRON 4 MG TAB.RAPDIS PO PRN (08:00)
[2020-05-10] MEDS ORDERED: ENOXAPARIN SODIUM INJ 100 MG/1 ML DISP.SYRIN SUBCUT SCH (10:00)
[2020-05-10] MEDS ORDERED: ENOXAPARIN SODIUM INJ 40 MG/0.4 ML DISP.SYRIN SUBCUT SCH (10:00)
[2020-05-10] MEDS: INSULIN LISPRO 100 UNIT/ML 3 ML VIAL SUBCUT SCH ×2 (10:04→12:16)
[2020-05-10] MEDS: DEXAMETHASONE SOD PHOS INJ 10 MG/1 ML VIAL IV SCH (10:12)
[2020-05-10] MEDS: IVERMECTIN 3 MG TABLET PO SCH (10:13)
[2020-05-10] MEDS: DOCUSATE SODIUM 100 MG CAPSULE PO SCH (10:13)
[2020-05-10] MEDS: ASCORBIC ACID 500 MG TABLET PO SCH (10:13)
[2020-05-10] MEDS: CHOLECALCIFEROL (D3) 1,000 UNIT (25 MCG) TABLET PO SCH (10:13)
[2020-05-10] MEDS: ZINC SULFATE 220 MG CAPSULE PO SCH (10:13)
[2020-05-10] MEDS: ASPIRIN 81 MG TABLET, ENT COATED PO SCH (10:13)
[2020-05-10] MEDS: FAMOTIDINE 20 MG TABLET PO SCH (10:13)
[2020-05-10] MEDS: FLUTICASONE/VILANTEROL 100-25 MCG/DOSE IH SCH (10:15)
[2020-05-10] MEDS: SOTALOL HCL 80 MG TABLET PO SCH (10:15)
--- NOTE | 2020-05-10 11:24 | PDOC DISCHARGE SUMMARY ---
Impression - Admit/DC Date/PCP Admission Date/Primary Care Provider: 05/08/20 13:53 SERGEY MANCUSO Discharge Date: 05/10/20 - Discharge Diagnosis (1) Pneumonia due to COVID-19 virus Is this a current diagnosis for this admission?: Yes (2) Acute respiratory failure with hypoxia Is this a current diagnosis for this admission?: Yes (3) CAD (coronary artery disease) Is this a current diagnosis for this admission?: Yes (4) COPD (chronic obstructive pulmonary disease) Is this a current diagnosis for this admission?: Yes (5) Diabetes mellitus type 2 in obese Is this a current diagnosis for this admission?: Yes (6) Hyperkalemia Is this a current diagnosis for this admission?: Yes (7) HTN (hypertension) Is this a current diagnosis for this admission?: Yes (8) ILIR (obstructive sleep apnea) Is this a current diagnosis for this admission?: Yes - Additional Information Discharge Diet: As Tolerated Discharge Activity: Slowly Increase Activity Referrals: TAMMY CHRISTIAN MD [[facility] STAFF] - Follow up as needed Prescriptions: Dexamethasone [Decadron 4 Mg Tablet] 4 mg PO DAILY #6 tablet Ascorbic Acid [Vitamin C 500 mg Tablet] 1,000 mg PO BID #60 tablet Cholecalciferol (Vitamin D3) [Vitamin D3 1000 Unit Tablet] 2,000 unit PO DAILY #40 tablet Zinc Sulfate [Zinc-220 Capsule] 220 mg PO DAILY #30 capsule Home Medications: Albuterol Sulfate [Proair HFA Inhalation Aerosol 8.5 gm MDI] 2 puff IH Q4HP PRN 02/13/19 Atorvastatin Calcium [Lipitor 20 mg Tablet] 40 mg PO DAILY 02/13/19 Budesonide/Formoterol Fumarate [Symbicort HFA 160-4.5 mcg Inhaler 6 gm] 2 puff IH Q12 02/13/19 Fenofibrate 54mg 54 mg PO QAM 02/13/19 Hydrocodone Bit/Acetaminophen [Hydrocodon-Acetaminophn 10-325] 1 tab PO Q6HP PRN 02/13/19 Aspirin [Ecotrin 81 mg EC Tablet] 81 mg PO DAILY 05/07/20 Metformin HCl 1,000 mg PO BID 05/07/20 Ascorbic Acid [Vitamin C 500 mg Tablet] 1,000 mg PO BID #60 tablet 05/10/20 Cholecalciferol (Vitamin D3) [Vitamin D3 1000 Unit Tablet] 2,000 unit PO DAILY #40 tablet 05/10/20 Dexamethasone [Decadron 4 Mg Tablet] 4 mg PO DAILY #6 tablet 05/10/20 Zinc Sulfate [Zinc-220 Capsule] 220 mg PO DAILY #30 capsule 05/10/20 History of Present Illiness History of Present Illness: According to admitting provider: HELIO RODRIGUEZ is a 70 year old male with past medical history of CAD status post stent placement and defibrillator placement, hypertension, diabetes, presenting to ED complaining of 1 week of worsening shortness of breath, fatigue, loss of smell, loss of taste, excessive sleepiness, and worsening ch ronic diarrhea. Denies any chest pain, fever, abdominal pain, nausea, vomiting, any urinary symptoms. In ED he was found to have mild leukocytosis, mildly elevated liver chemistries, hyperkalemia, chest x-ray positive for patchy bilateral parenchymal opacities. Hospitalist consulted for presumptive COVID-19 pneumonia. Pending COVID-19 serology at the time of dictation. Pending troponins. Hospital Course Hospital Course: Representation to the hospital, patient was noted to be mildly hypoxic around 88 to 87% requiring 2 L nasal cannula. Chest x-ray revealed pneumonia. Blood work revealed mild hyponatremia, hyperkalemia and elevated inflammatory markers including elevated D-dimer. He was started on steroids, vitamins and zinc supplements. CTA of the chest showed no evidence of PE but did show bilateral groundglass opacities consistent with COVID-19 pneumonia. His COVID-19 test was also positive. He subsequently received a dose of ivermectin and he received his second dose of ivermectin today. Given his onset of symptoms, he was out of the window for remdesivir. He had transaminitis which has improved. His symptoms have improved. He has also remained relatively stable in terms of his hypoxia being able to go up most of the day on room air with SPO2 in the low 90s. He is often put nasal cannula at nighttime given his obstructive sleep apnea as he was not able to tolerate our CPAP machine due to the constant alarming. He does use a CPAP at home. He states he feels a whole lot better today than when he came in and he is ready to go home. Today, patient is ambulated on room air and his SPO2 never dropped below 88% and he never felt dyspneic. I did instruct him to monitor his BP at home as his lisinopril was held due to soft blood pressures and hyperkalemia and to discuss with his PCP regarding reinitiating his lisinopril if his blood pressure starts to go up. Patient being discharged on vitamin C, vitamin D, zinc and a few more days of Decadron. Physical Exam Vital Signs: Temp Pulse Resp BP Pulse Ox 97.9 F 66 18 105/64 96 05/10/20 07:53 05/10/20 07:53 05/10/20 07:53 05/10/20 07:53 05/10/20 07:53 Intake & Output 05/09/20 05/10/20 05/11/20 06:59 06:59 06:59 Intake Total 1860 820 Balance 1860 820 Weight 114.9 kg 114.5 kg General appearance: PRESENT: no acute distress, cooperative Neck exam: ABSENT: JVD Respiratory exam: PRESENT: clear to auscultation arsenio, unlabored Cardiovascular exam: PRESENT: +S1, +S2. ABSENT: tachycardia GI/Abdominal exam: PRESENT: soft. ABSENT: tenderness Extremities exam: ABSENT: calf tenderness, tenderness Musculoskeletal exam: PRESENT: ambulatory Neurological exam: PRESENT: alert, awake Results Laboratory Results: WBC 12.6 10^3/uL (4.0-10.5) H 05/10/20 04:44 RBC 4.51 10^6/uL (4.35-5.55) 05/10/20 04:44 Hgb 12.7 g/dL (13.5-17.0) L 05/10/20 04:44 Hct 36.7 % (37.9-51.0) L 05/10/20 04:44 MCV 81 fl (80-97) 05/10/20 04:44 MCH 28.1 pg (27.0-33.4) 05/10/20 04:44 MCHC 34.6 g/dL (32.0-36.0) 05/10/20 04:44 RDW 15.4 % (11.5-14.0) H 05/10/20 04:44 Plt Count 270 10^3/uL (150-450) 05/10/20 04:44 Lymph % (Auto) 6.2 % (13-45) L 05/10/20 04:44 Lewis % (Auto) 9.3 % (3-13) 05/10/20 04:44 Eos % (Auto) 0.0 % (0-6) 05/10/20 04:44 Baso % (Auto) 0.4 % (0-2) 05/10/20 04:44 Absolute Neuts (auto) 10.6 10^3/uL (1.7-8.2) H 05/10/20 04:44 Absolute Lymphs (auto) 0.8 10^3/uL (0.5-4.7) 05/10/20 04:44 Absolute Monos (auto) 1.2 10^3/uL (0.1-1.4) 05/10/20 04:44 Absolute Eos (auto) 0.0 10^3/uL (0.0-0.6) 05/10/20 04:44 Absolute Basos (auto) 0.0 10^3/uL (0.0-0.2) 05/10/20 04:44 Total Counted 100 05/09/20 04:41 Seg Neutrophils % 84.1 % (42-78) H 05/10/20 04:44 Seg Neuts % (Manual) 89 % (42-78) H 05/09/20 04:41 Lymphocytes % (Manual) 4 % (13-45) L 05/09/20 04:41 Monocytes % (Manual) 7 % (3-13) 05/09/20 04:41 Eosinophils % (Manual) 0 % (0-6) 05/09/20 04:41 Basophils % (Manual) 0 % (0-2) 05/09/20 04:41 Abs Neuts (Manual) 15.4 10^3/uL (1.7-8.2) H 05/09/20 04:41 Abs Lymphs (Manual) 0.7 10^3/uL (0.5-4.7) 05/09/20 04:41 Abs Monocytes (Manual) 1.2 10^3/uL (0.1-1.4) 05/09/20 04:41 Absolute Eos (Manual) 0.0 10^3/uL (0.0-0.6) 05/09/20 04:41 Abs Basophils (Manual) 0.0 10^3/uL (0.0-0.2) 05/09/20 04:41 Platelet Comment ADEQUATE 05/09/20 04:41 Anisocytosis 1+ 05/09/20 04:41 PT 15.2 SEC (11.4-15.4) 05/09/20 18:50 INR 1.18 05/09/20 18:50 APTT 35.1 SEC (23.5-35.8) 05/09/20 18:50 Fibrinogen 667 mg/dL (209-497) H 05/09/20 18:50 D-Dimer 0.66 ug/mL (0.00-0.50) H 05/10/20 04:44 Sodium 138.8 mmol/L (137-145) 05/10/20 04:44 Potassium 4.5 mmol/L (3.6-5.0) 05/10/20 04:44 Chloride 105 mmol/L (98-107) 05/10/20 04:44 Carbon Dioxide 28 mmol/L (22-30) 05/10/20 04:44 Anion Gap 6 (5-19) 05/10/20 04:44 BUN 27 mg/dL (7-20) H 05/10/20 04:44 Creatinine 0.98 mg/dL (0.52-1.25) 05/10/20 04:44 Est GFR ( Amer) > 60 (>60) 05/10/20 04:44 Est GFR (MDRD) Non-Af > 60 (>60) 05/10/20 04:44 Glucose 129 mg/dL (75-110) H 05/10/20 04:44 POC Glucose 135 mg/dL (70-110) H 05/10/20 07:54 Calcium 8.6 mg/dL (8.4-10.2) 05/10/20 04:44 Ferritin 653.00 ng/mL (17.9-464.0) H 05/10/20 04:44 Total Bilirubin 0.4 mg/dL (0.2-1.3) 05/10/20 04:44 Direct Bilirubin 0.2 mg/dL (0.0-0.4) 05/10/20 04:44 Neonat Total Bilirubin Not Reportable 05/10/20 04:44 Neonat Direct Bilirubin Not Reportable 05/10/20 04:44 Neonat Indirect Bili Not Reportable 05/10/20 04:44 AST 91 U/L (17-59) H 05/10/20 04:44 ALT 182 U/L (<50) H 05/10/20 04:44 Alkaline Phosphatase 52 U/L (38-126) 05/10/20 04:44 Lactate Dehydrogenase 368 U/L (120-246) H 05/07/20 17:01 Troponin I < 0.012 ng/mL 05/07/20 17:01 C-Reactive Protein 60.2 mg/L (<10.0) H 05/10/20 04:44 Total Protein 5.7 g/dL (6.3-8.2) L 05/10/20 04:44 Albumin 3.2 g/dL (3.5-5.0) L 05/10/20 04:44 Influenza A (Rapid) Cancelled 05/07/20 17:19 Influenza A (RT-PCR) NEGATIVE (NEGATIVE) 05/07/20 17:19 Influenza B (Rapid) Cancelled 05/07/20 17:19 Influenza B (RT-PCR) NEGATIVE (NEGATIVE) 05/07/20 17:19 RSV (RT-PCR) NEGATIVE (NEGATIVE) 05/07/20 17:19 SARS-CoV-2 Rap RNA(RT-PCR) POSITIVE (NEGATIVE) 05/07/20 17:19 Blood Type A POSITIVE 05/07/20 18:50 05/07/20 17:01 Troponin I < 0.012 Impressions: Chest X-Ray 05/07/20 15:47 IMPRESSION: Patchy bilateral parenchymal opacities in a peripheral distribution. Correlation with clinical findings to exclude a pneumonia (including atypical infections such as COVID-19) is recommended. Chest/Abdomen CTA 05/08/20 00:00 IMPRESSION: 1. There is no pulmonary embolus. There is no aortic aneurysm or dissection. 2. There are extensive ground-glass infiltrates consistent with the history of COVID-19 pneumonia. Plan Time Spent: Greater than 30 Minutes Stroke Is this a Stroke Patient?: No Acute Heart Failure Is this a Heart Failure Patient?: No
[2020-05-10 12:24] VITALS: BP 116/55
== END 2020-05-10 13:16 | disposition home or self-care (01) | DRG 177 ==
LOC: ER 13:16 → EH 18:23 → 3N 19:50 → OBSVTOIN 05-08 13:53
PROVIDERS: ADMIT Internal Medicine; ATTEND Internal Medicine
DX: U07.1 COVID-19 (principal); J12.82 Pneumonia due to coronavirus disease 2019; J96.01 Acute respiratory failure with hypoxia; E87.1 Hypo-osmolality and hyponatremia; E87.5 Hyperkalemia; J45.909 Unspecified asthma, uncomplicated; K52.9 Noninfective gastroenteritis and colitis, unspecified; I25.10 Atherosclerotic heart disease of native coronary artery without angina pectoris; G47.33 Obstructive sleep apnea (adult) (pediatric); E11.9 Type 2 diabetes mellitus without complications; M19.90 Unspecified osteoarthritis, unspecified site; R77.8 Other specified abnormalities of plasma proteins; I25.2 Old myocardial infarction; Z91.041 Radiographic dye allergy status; Z82.49 Family history of ischemic heart disease and other diseases of the circulatory system; Z95.5 Presence of coronary angioplasty implant and graft; Z83.3 Family history of diabetes mellitus; Z79.82 Long term (current) use of aspirin; Z79.84 Long term (current) use of oral hypoglycemic drugs; Z79.899 Other long term (current) drug therapy; Z87.891 Personal history of nicotine dependence; Z79.51 Long term (current) use of inhaled steroids
CPT/HCPCS: 36415; 36430; 71045; 71275; 80053; 82728; 82962; 83615; 84484; 85025; 85379; 85384; 85610; 85730; 86140; 86900; 86901; 93005; 93010; 94660; 99285; 0241U; C9803; G0378; J0610; J0696; J1100; J1650; J1815; J3490; J7030